=== PATIENT | female | born 2000 | race Caucasian/White ===

== ENCOUNTER 2020-07-14 09:24 | Outpatient (REF) | payer MEDICAID, SELFPAY ==
--- NOTE | 2020-07-14 09:48 | EMG_ITS ---
HISTORY OF PRESENT ILLNESS: This is a 20-year-old girl with 9-month history of pain and numbness in both upper extremities. She is on no medications. PHYSICAL EXAMINATION: On examination, she is alert and oriented with normal intellectual functions. Cranial nerves II through XII are normal. Muscle tone and strength are normal in all 4 extremities. Deep tendon reflexes symmetrical, 2+, plantar response are flexor. IMPRESSION: Rule out carpal tunnel syndrome. NERVE CONDUCTION EMG STUDY: Normal electrodiagnostic study of both upper extremities with no evidence of carpal tunnel syndrome or cervical radiculopathy. Normal EMG of the left C5 through T1 innervated muscles. MD MAURA Recio/ROCIO / [id number]
== END 2020-07-14 09:25 | disposition home or self-care (01) ==
LOC: HO.NEURO 09:24
PROVIDERS: PCP Pediatrics; Visit Provider Pediatrics
DX: M25.531 Pain in right wrist (principal); M25.532 Pain in left wrist; M79.641 Pain in right hand; M79.642 Pain in left hand
CPT/HCPCS: 95860; 95886; 95913

== ENCOUNTER → 2020-07-22 13:11 | Outpatient (BNVA) | payer MEDICAID, SELFPAY | PROVIDERS: PCP Pediatrics; Visit Provider Orthopaedic Surgery | DX: R20.0 Anesthesia of skin (principal); R20.2 Paresthesia of skin | CPT/HCPCS: 99212 ==

== ENCOUNTER 2021-06-29 10:32 | Outpatient (REF) | payer MEDICAID, SELFPAY ==
[2021-06-29 11:02] LABS: COVID-19 Test Negative (Negative)
== END 2021-06-29 10:33 | disposition home or self-care (01) ==
LOC: HO.LAB 10:32
PROVIDERS: Visit Provider Internal Medicine
DX: Z20.822 Contact with and (suspected) exposure to COVID-19 (principal)
CPT/HCPCS: 36415; 87635; C9803

== ENCOUNTER 2021-11-10 14:39 | Outpatient (REF) | payer MEDICAID, SELFPAY ==
--- NOTE | ~2021-11-10 | XR_ITS ---
EXAMINATION: XR SHOULDER, LEFT CLINICAL INFORMATION: Left shoulder pain. COMPARISON: None TECHNIQUE: AP external rotation, Grashey, scapular Y, and axillary views of the left shoulder. FINDINGS: No acute fracture or dislocation of the left shoulder is identified. Glenohumeral joint appears unremarkable. No significant degenerative change of the acromioclavicular joint is seen. No calcific tendinitis. No widening of the coracoclavicular space. AP view there is a 4 mm circumscribed density seen overlying the glenoid and I cannot tell if this may represent a bone island or loose body or not be associated with the joint. I do not definitely see this density on the other images. XR/XR shoulder LT min 2V IMPRESSION: 4 mm circumscribed density overlying the glenoid as described. Otherwise unremarkable left shoulder study.
== END 2021-11-10 14:40 | disposition home or self-care (01) ==
LOC: HO.XRAY 14:39
PROVIDERS: Absent Provider Family Medicine; PCP Family Medicine; Visit Provider Emergency Medicine
DX: M25.512 Pain in left shoulder (principal)
CPT/HCPCS: 73030

== ENCOUNTER 2022-02-08 15:51 | Outpatient (REF) | payer MEDICAID, SELFPAY ==
--- NOTE | ~2022-02-08 | XR_ITS ---
EXAMINATION: XR RIBS, LEFT CLINICAL INFORMATION: Tender along left lateral ribs. Status post fall COMPARISON: None TECHNIQUE: 3 views of the left ribs were obtained. Chest PA 1 view FINDINGS: Lungs are clear. No consolidation, pneumothorax, or pleural effusion. The cardiomediastinal silhouette and pulmonary vasculature are normal. Osseous structures are unremarkable. Ribs are intact. No acute fractures are identified. XR/XR ribs LT min 3V w CXR1V IMPRESSION: Unremarkable chest examination. There is no visible fracture involving the left ribs.
== END 2022-02-08 15:52 | disposition home or self-care (01) ==
LOC: HO.XRAY 15:51
PROVIDERS: PCP Family Medicine; Visit Provider Emergency Medicine
DX: S20.212A Contusion of left front wall of thorax, initial encounter (principal)
CPT/HCPCS: 71101

== ENCOUNTER 2022-07-13 11:32 | Outpatient (REF) | payer OTHER, MEDICAID, SELFPAY ==
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
== END 2022-07-13 11:33 | disposition home or self-care (01) ==
LOC: HO.MRI 11:32
PROVIDERS: PCP Family Medicine; Visit Provider Orthopaedic Surgery
DX: M24.812 Other specific joint derangements of left shoulder, not elsewhere classified (principal)
CPT/HCPCS: 73221

== ENCOUNTER 2024-03-29 12:08 | Emergency (ER) | payer OTHER, SELFPAY ==
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
[2024-03-29 12:23] VITALS: BP 121/86; PULSE 57; RESP 18; TEMP 36.3; O2SAT 100; BMI 36.1
[2024-03-29] MEDS: Amoxicillin/Potassium Clav 875 MG TABLET PO (12:36)
[2024-03-29] MEDS: Diphth,Pertus(ACell),Tet Adult 0.5 ML SYRINGE IM (12:36)
[2024-03-29 12:44] VITALS: BP 121/86; PULSE 57; RESP 18; TEMP 36.3; O2SAT 100
== END 2024-03-29 12:45 | disposition home or self-care (01) ==
PROVIDERS: Emergency Provider Emergency Medicine Emergency Medical Services
DX: S51.851A Open bite of right forearm, initial encounter (principal); Y04.1XXA Assault by human bite, initial encounter; Y93.F9 Activity, other caregiving; Y92.239 Unspecified place in hospital as the place of occurrence of the external cause; Y99.0 Civilian activity done for income or pay; Z23 Encounter for immunization
CPT/HCPCS: 90471; 90715; 99282; 99284

== ENCOUNTER 2025-04-04 17:51 | Emergency (ER) | payer MEDICAID, SELFPAY ==
--- NOTE | ~2025-04-04 | US_ITS ---
CLINICAL HISTORY: pos home test US OB 1st trimester transabdominal and transvaginal with Doppler ultrasound Indication: Positive home test, serum hCG not available at the time of interpretation. LMP reported 02/26 Comparison: None provided Findings: The uterus demonstrates normal myometrium. Endometrial stripe is thickened measuring 12 mm. There is a small possible gestational sac at the upper endometrial stripe measuring a proximally 3 mm. No pole or yolk sac is demonstrated. MSD: 2.6 mm. CRL: N/A EGA: N/A DARWIN: N/A No yolk sac . Cardiac activity: N/A No subchorionic bleed. The right ovary measures 3.5 x 2.5 x 2.4 cm. There is a likely luteal cyst measuring 2.8 x 1.8 x 2.0 cm. The left ovary measures 2.3 x 1.7 x 1.6 cm Normal Doppler flow and waveforms in the bilateral ovaries. No free fluid. IMPRESSION: Intrauterine gestational sac versus pseudo gestational sac given small size. Recommend serum hCG and repeat imaging in 1 to 2 weeks. This document has been electronically signed by: Nj Peralta III, MD PHD on 04/04/2025 21:21:44
[2025-04-04 18:03] VITALS: BP 112/77; PULSE 54; RESP 16; TEMP 36.4; O2SAT 100; BMI 32.8
--- NOTE | 2025-04-04 18:03 | ED.GENADULT ---
HPI - General Adult General Chief complaint: General Medical Stated complaint: ? Time Seen by Provider: 04/04/25 18:45 Source: patient Mode of arrival: ambulatory Limitations: no limitations History of Present Illness ED Provider: Laila Varner PA-C HPI narrative: 25-year-old female presents to the ED due to two positive home tests. Patient states last menstrual period was 02/26-03/04. Patient reports she began to feel some nausea yesterday without vomiting. Patient does not have healthcare, does not have PCP or OB follow-up and wanted ultrasound for evaluation of gestational age. Patient states that she had a prior , had miscarriage. Patient denies vaginal discharge, vaginal bleeding, abdominal pain, vomiting, MD complaint: positive home test Related Data Home Medications ?Medication ?Instructions ?Recorded ?Confirmed citalopram 10 mg tablet (Celexa) 10 mg PO DAILY 07/22/20 clonazepam 0.125 mg disintegrating 0.125 mg PO DAILY 05/26/22 tablet metformin 500 mg tablet 500 mg PO DAILY 05/26/22 Previous Rx's ?Medication ?Instructions ?Recorded amoxicillin 875 mg-potassium 1 tab PO BID #13 tabs 03/29/24 clavulanate 125 mg tablet amoxicillin 500 mg capsule 500 mg PO BID 7 days #14 caps 04/04/25 Allergies Allergy/AdvReac Type Severity Reaction Status Date / Time No Known Allergies Allergy Verified 04/04/25 18:04 Review of Systems Review of Systems: CONST: Negative for fever, body aches and chills. HENT: Negative for neck pain/stiffness, headache, congestion, sore throat, swelling. EYES: Negative for discharge/pain or vision changes. RESP: Negative for cough/hemoptysis and shortness of breath. CV: Negative chest pain, difficulty breathing, palpitations. ABD: Negative pain, nausea, vomiting. : Negative increase frequency, dysuria, blood in urine or stool. MUSC: Negative for muscle aches, edema. SKIN: Negative rash, lesions/sores. NEURO: Negative headache, dizziness, weakness. Yes all other systems are reviewed and are negative PMFSH Past Medical History Attestation statement: The following information was validated with the patient. Source: old records reviewed and nursing notes reviewed Medical History Bilateral hand pain Insomnia Social History Social History Advance Directives: No Advance Directives Information Provided: No Do you have a plan to hurt others: No Plan Current occupational status: unemployed Current occupation: [employer] Physical Exam ED Vital Signs: Vital Signs - 24 hr 04/04/25 18:03 Temperature 97.6 F Pulse Rate 54 Respiratory Rate 16 Blood Pressure 112/77 Pulse Oximetry 100 Oxygen Delivery Method Room Air BMI result Body Mass Index 32.8 GENERAL APPEARANCE: ?AxOx4, generally well-appearing, no acute distress. HEENT: ?NC, AT. MMM. EOMI, clear conjunctiva, oropharynx clear. NECK: ?Supple without lymphadenopathy.? No stiffness or restricted ROM. HEART:? Normal rate and regular rhythm, normal S1/S1, no m/r/g LUNGS:? CTAB, moving air well. No crackles or wheezes are heard. ABDOMEN: ?Soft, nontender, nondistended with good bowel sounds heard. BACK: No CVAT, no obvious deformity. EXTREMITIES: ?Without cyanosis, clubbing or edema. NEUROLOGICAL: ?Grossly nonfocal. Alert and oriented, moving all 4 extremities. Observed to ambulate with normal gait. Skin: ?Warm and dry without any rash. Course Course Course Narrative: RME, this is a rapid medical exam performed by Damián Camp please refer to primary provider for complete H&P- 25 year old female presents for evaluation of I think I am . She reports that she is 8 days late for her menstrual cycle, denies any pain. Plan for labs including HCG Medical Decision Making Medical Decision Making [facility]DM Narrative: 25-year-old female presents to the ED due to two positive home tests. Patient states last menstrual period was 02/26-03/04. Patient reports she began to feel some nausea yesterday without vomiting. Patient does not have healthcare, does not have PCP or OB follow-up and wanted ultrasound for evaluation of gestational age. Patient states that she had a prior , had miscarriage. Patient denies vaginal discharge, vaginal bleeding, abdominal pain, vomiting, VSS, no acute distress, nontoxic appearing. Physical exam benign. Lungs clear to auscultation bilaterally, cardiac exam reveals regular rate rhythm, no murmurs/rubs/gallops. Abdomen soft nontender, nondistended. Extremities without edema. Labs, HCG, UA, ordered from triage Course 19:31- patient states she would like evaluation with transvaginal ultrasound to see if we are able to evaluate her and gestational age. Patient with prior miscarriage, wants to make sure everything is okay. I counseled patient that her hCG at this time is 3:49 p.m., this may be too low for us to visualize embryo on ultrasound. Labs revealed leukocytosis at 11.1, UA reveals cloudy urine, with 1+ leukocyte esterases, 6-10 urine WBCs, 4+ bacteria, and 11-20 squamous epithelial cells. These findings could be due to contaminated catch. Patient without symptoms. No treatment indicated at this time, will call patient if culture is positive for bacteria growth. Patient without vaginal bleeding, no abdominal pain, no CVA tenderness, no physical complaints, vital signs stable without tachycardia, without hypotension, abdomen nontender.- Less likely ectopic Awaiting transvaginal ultrasound. 20:51- at this time I went into discuss transvaginal ultrasound findings with patient and she disclosed with me that she currently has a chlamydia infection is being treated with doxycycline. Patient states she has tested at [facility], with positive chlamydia and negative gonorrhea. She she states she has been on treatment for the past 3 days, was prescribed treatment by [facility]. Patient states she did not take medication today due to finding out she was , and was worried about the medication safety during . I will treat the patient today with IM Rocephin, and 7 days of 500 mg amoxicillin b.i.d. Transvaginal ultrasound reveals gestational sac within the uterus, can not visualize yolk at this time due to early gestational age. Differential Diagnosis Differential Diagnoses: The differential diagnosis associated with the presentation includes Ectopic UTI Admission/Observation Consideration of admission/observation: Escalation of care including admission/observation considered Lab Data MDM Lab Attestation statement: I reviewed the patient's lab results. 04/04/25 18:30 04/04/25 18:29 Labs: Lab Results 04/04/25 04/04/25 Range/Units 18:29 18:30 WBC 11.1 H (4.8-10.8) X10*3/uL RBC 4.88 (4.20-5.50) X10*6/uL Hgb 10.9 L (12.0-16.0) g/dl Hct 35.7 L (37.0-47.0) % MCV 73.2 L (80.0-98.0) fL MCH 22.3 L (27.0-33.0) pg MCHC 30.5 L (31.0-35.0) g/dl RDW 16.7 H (11.0-16.0) % Plt Count 220 (160-400) X10*3/uL MPV 11.5 (9.4-12.3) fL Immature Gran % (Auto) 0.2 (0.0-0.4) % Neut % (Auto) 78.6 H (45-73) % Lymph % (Auto) 14.2 L (20-40) % [place] % (Auto) 5.8 (2-11) % Eos % (Auto) 0.6 (0-4) % Baso % (Auto) 0.6 (0-2) % Lymph # (Auto) 1.6 (1.2-4.9) X10*3/uL [place] # (Auto) 0.7 (0.1-1.2) X10*3/uL Eos # (Auto) 0.1 (0.0-0.4) X10*3/uL Baso # (Auto) 0.1 (0.0-0.2) X10*3/uL Abs Immat Gran (auto) 0.02 (0.00-0.03) X10*3/uL Absolute Neuts (auto) 8.7 H (2.0-8.3) x10*3/uL Absolute Nucleated RBC 0.000 (0.0-0.012) X10*3/uL Nucleated RBC % (auto) 0.0 (0.0-0.2) /100WBC Smear Tech's Comments VERIFIED Sodium 141 (135-145) mmol/L Potassium 3.6 (3.3-5.1) mmol/L Chloride 106 (96-108) mmol/L Carbon Dioxide 25 (22-29) mmol/L Anion Gap 14 (12-20) BUN 9 (9-16) mg/dL Creatinine 0.75 (0.5-1.4) mg/dL Estim Creat Clear Calc 116.6 Estimated GFR > 60 Random Glucose 89 (60-115) mg/dL Calcium 9.5 (8.4-10.2) mg/dL Total Bilirubin 0.9 (0.0-1.0) mg/dL AST 19 (5-31) U/L ALT 14 (0-31) U/L Alkaline Phosphatase 89 (39-117) U/L Total Protein 7.8 (6.5-8.0) g/dL Albumin 4.7 (3.5-5.0) g/dL Beta HCG, Quant 1549 mIU/mL Urine Color Yellow Urine Appearance Cloudy Urine pH 6.5 (5.0-9.0) Ur Specific [place] 1.025 (1.005-1.025) Urine Protein Trace (Neg-Trace) mg/dL Urine Glucose (UA) Negative (Negative) mg/dL Urine Ketones Negative (Negative) mg/dL Urine Blood Negative (Negative) Urine Nitrite Negative (Negative) Ur Leukocyte Esterase Small (1+) H (Negative) Urine RBC 0-2 (0-2) /HPF Urine WBC 6-10 H (0-5) /HPF Ur Squamous Epith Cells 11-20 (0-2) /HPF Urine Bacteria 4+ (None Seen) Hyaline Casts 0-2 (0-2) /LPF Independent Interpretation I performed an independent interpretation of an: Ultrasound Interpretation: I independently interpreted the transvaginal ultrasound which visualized as a gestational sac within the uterus, but no yolk is visualized due to early gestational age. External Record Review External record reviewed: Inpatient record, Office record and Outpatient record Chronic Conditions Patient?s care impacted by: Other () Discharge Plan Discharge Clinical Impression: , Chlamydia Patient Disposition: Home, Self-Care Instructions: (ED) Additional Instructions: You were evaluated in the ED today due to positive home test. Your transvaginal ultrasound revealed gestational sac within the uterus, but no visualized yolk due to early gestational age. Your urine test was contaminated by a skin cells, but will be cultured, if bacteria grows he will call you with results-I do not think your urine is infected at this time, you do not have any symptoms. You disclosed with me that you were currently being treated for chlamydia through [facility] and had been on doxycycline. You should discontinue the doxycycline. I treated you today for an COVID infection of both chlamydia and gonorrhea these 2 STIs usually go hand in hand. You received an IM shot of 500 mg ceftriaxone which is an antibiotic safe in , and prescribed a 7 day course of 500 mg of amoxicillin that you will take twice a day, this medication is also safe in . You should complete this medication its entirety, do not skip a dose. Your sexual partner should also be treated. Do not have sexual intercourse until you complete your antibiotic regimen. Do not use any sex toys that have not been washed as you can reinfect yourself. You can present to the main entrance of [facility] Sunday through Sunday during business hours for assistance in obtaining mass Health. Please return to the emergency department if you experience fevers over 100.4?, abdominal pain, pelvic pain, vaginal bleeding, vaginal discharge, or any other new/worsening/concerning symptoms. Prescriptions: New amoxicillin 500 mg capsule 500 mg PO BID 7 Days Qty: 14 0RF No Action amoxicillin-pot clavulanate 875-125 mg tablet 1 tab PO BID Qty: 13 0RF citalopram [Celexa] 10 mg tablet 10 mg PO DAILY clonazepam 0.125 mg tablet,disintegrating 0.125 mg PO DAILY metformin 500 mg tablet 500 mg PO DAILY Print Language: Mongolian
[2025-04-04 18:39] LABS: Appearance Urine Cloudy; Glucose Urine UA Negative (Negative); PH 6.5 (5.0-9.0); Specific Gravity - Urine 1.025 (1.005-1.025); UMIC TRIGGER UACC YES
[2025-04-04 18:39] LABS: Hematocrit 35.7 % (37.0-47.0); Mean Corpuscular Volume 73.2 fL (80.0-98.0); NRBC Abs Auto 0.000 X10*3/uL (0.0-0.012); NRBC Pct Auto 0.0 /100WBC (0.0-0.2); Red Blood Count 4.88 X10*6/uL (4.20-5.50); SCAN SMEAR FLAG 1
[2025-04-04 18:40] LABS: Hemoglobin 10.9 g/dl (12.0-16.0); Imm Gran Abs Auto 0.02 X10*3/uL (0.00-0.03); Imm Gran Pct Auto 0.2 % (0.0-0.4); Lymphocytes Absolute Auto 1.6 X10*3/uL (1.2-4.9); MANUAL DIFF FLAG SCAN; Mean Corpuscular HGB Conc 30.5 g/dl (31.0-35.0); Mean Corpuscular Hemoglobin 22.3 pg (27.0-33.0); White Blood Count 11.1 X10*3/uL (4.8-10.8)
[2025-04-04 18:41] LABS: PLT ABN DIST 1
[2025-04-04 18:44] LABS: UACC Culture Trigger YES
[2025-04-04 18:58] LABS: Alanine Aminotransferase 14 U/L (0-31); Albumin Level 4.7 g/dL (3.5-5.0); Alkaline Phosphatase 89 U/L (39-117); Anion Gap 14 (12-20); Aspartate Amino Transferase 19 U/L (5-31); Blood Urea Nitrogen 9 mg/dL (9-16); Calcium 9.5 mg/dL (8.4-10.2); Carbon Dioxide 25 mmol/L (22-29); Chloride 106 mmol/L (96-108); Creatinine Clr Calc Pharmacy 116.6; Estimated Glomerular Filt Rate > 60; Potassium 3.6 mmol/L (3.3-5.1); Sodium 141 mmol/L (135-145); Total Protein 7.8 g/dL (6.5-8.0)
[2025-04-04 18:59] LABS: Platelet Count 220 X10*3/uL (160-400)
[2025-04-04 21:05] VITALS: BP 118/78; PULSE 60; RESP 18; TEMP 36.6; O2SAT 100
[2025-04-04] MEDS: cefTRIAXone sodium 500 MG, Lidocaine HCl 1 % MPF 1 ML IM (21:09)
[2025-04-04 21:18] VITALS: BP 118/78; PULSE 60; RESP 18; TEMP 36.6; O2SAT 100
== END 2025-04-04 21:19 | disposition home or self-care (01) ==
PROVIDERS: Physician Assistant; Emergency Provider Emergency Medicine
DX: O98.311 Other infections with a predominantly sexual mode of transmission complicating pregnancy, first trimester (principal); A56.02 Chlamydial vulvovaginitis; Z3A.01 Less than 8 weeks gestation of pregnancy
CPT/HCPCS: 36415; 76801; 80053; 81001; 84702; 85025; 87086; 96372; 99284; J0696; J2003

== ENCOUNTER → 2025-04-04 19:24 | Outpatient (BNV) | payer MEDICAID, SELFPAY | PROVIDERS: Emergency Provider Emergency Medicine; Visit Provider Radiology Diagnostic Radiology | DX: Z34.90 Encounter for supervision of normal pregnancy, unspecified, unspecified trimester (principal); Z3A.00 Weeks of gestation of pregnancy not specified | CPT/HCPCS: 76801; 76817 ==

== ENCOUNTER 2025-04-23 08:56 | Emergency (ER) | payer MEDICAID, SELFPAY ==
--- NOTE | ~2025-04-23 | US_ITS ---
EXAMINATION: US OBSTETRICAL ULTRASOUND CLINICAL INFORMATION: Early , vaginal bleeding. COMPARISON: None available. LMP: Estimated 02/26/2025. TECHNIQUE: Ultrasound of the maternal pelvis is performed using transabdominal and transvaginal transducers. Transvaginal imaging is performed due to inadequate visualization transabdominally. M-mode Doppler is also performed. FINDINGS: There is an intrauterine gestational sac within the fundal endometrium, with good dual decidual reaction present, a 5 mm yolk sac, a pole present measuring 0.3 cm, corresponding to estimated gestational age of 6 weeks, and 0 days. Estimated heart rate is measured at 109 bpm. No subchorionic hemorrhage or complication evident. The cervix has a normal appearance. MATERNAL ADNEXA: The right maternal ovary measures 3.9 x 1.9 x 2.4 cm. There is a corpus luteal cyst measuring 2.0 x 1.8 cm present. The left maternal ovary measures 2.2 x 1.7 x 1.4 cm. Normal sonographic appearance. There is no significant maternal adnexal mass. No maternal pelvic ascites. US/US OB <= 14 weeks fetus IMPRESSION: 1. Intrauterine gestational sac with good dual decidual reaction, no evidence of subchorionic hemorrhage, 5 mm yolk sac, and pole measuring 0.3 cm, corresponding to estimated gestational age of 6 weeks and 0 days. Estimated heart rate of 109 bpm. 2. No maternal adnexal mass or pelvic ascites. 3. Normal ovaries with corpus luteal cyst in the right ovary. Electronically signed by: Cong Dickinson MD 04/23/2025 11:50 AM EDT
--- NOTE | ~2025-04-23 | US_ITS ---
EXAMINATION: US OBSTETRICAL ULTRASOUND CLINICAL INFORMATION: Early , vaginal bleeding. COMPARISON: None available. LMP: Estimated 02/26/2025. TECHNIQUE: Ultrasound of the maternal pelvis is performed using transabdominal and transvaginal transducers. Transvaginal imaging is performed due to inadequate visualization transabdominally. M-mode Doppler is also performed. FINDINGS: There is an intrauterine gestational sac within the fundal endometrium, with good dual decidual reaction present, a 5 mm yolk sac, a pole present measuring 0.3 cm, corresponding to estimated gestational age of 6 weeks, and 0 days. Estimated heart rate is measured at 109 bpm. No subchorionic hemorrhage or complication evident. The cervix has a normal appearance. MATERNAL ADNEXA: The right maternal ovary measures 3.9 x 1.9 x 2.4 cm. There is a corpus luteal cyst measuring 2.0 x 1.8 cm present. The left maternal ovary measures 2.2 x 1.7 x 1.4 cm. Normal sonographic appearance. There is no significant maternal adnexal mass. No maternal pelvic ascites. US/US OB transvaginal IMPRESSION: 1. Intrauterine gestational sac with good dual decidual reaction, no evidence of subchorionic hemorrhage, 5 mm yolk sac, and pole measuring 0.3 cm, corresponding to estimated gestational age of 6 weeks and 0 days. Estimated heart rate of 109 bpm. 2. No maternal adnexal mass or pelvic ascites. 3. Normal ovaries with corpus luteal cyst in the right ovary. Electronically signed by: Cong Dickinson MD 04/23/2025 11:50 AM EDT
[2025-04-23 09:05] VITALS: BP 129/67; PULSE 59; RESP 16; TEMP 37.2; O2SAT 100; BMI 33.8
[2025-04-23 09:33] LABS: MANUAL DIFF FLAG NO
[2025-04-23 09:38] LABS: Hematocrit 31.9 % (37.0-47.0); Hemoglobin 9.8 g/dl (12.0-16.0); Imm Gran Abs Auto 0.02 X10*3/uL (0.00-0.03); Imm Gran Pct Auto 0.3 % (0.0-0.4); Lymphocytes Absolute Auto 1.2 X10*3/uL (1.2-4.9); Mean Corpuscular HGB Conc 30.7 g/dl (31.0-35.0); Mean Corpuscular Hemoglobin 23.3 pg (27.0-33.0); Mean Corpuscular Volume 75.8 fL (80.0-98.0); NRBC Abs Auto 0.000 X10*3/uL (0.0-0.012); NRBC Pct Auto 0.0 /100WBC (0.0-0.2); Platelet Count 182 X10*3/uL (160-400); Red Blood Count 4.21 X10*6/uL (4.20-5.50); White Blood Count 6.8 X10*3/uL (4.8-10.8)
[2025-04-23 10:00] LABS: Anion Gap 12 (12-20); Blood Urea Nitrogen 8 mg/dL (9-16); Calcium 8.9 mg/dL (8.4-10.2); Carbon Dioxide 26 mmol/L (22-29); Chloride 106 mmol/L (96-108); Creatinine Clr Calc Pharmacy 119.3; Estimated Glomerular Filt Rate > 60; Potassium 4.0 mmol/L (3.3-5.1); Sodium 140 mmol/L (135-145)
--- NOTE | 2025-04-23 11:05 | ED.GENADULT ---
HPI - General Adult General Chief complaint: Vaginal Bleeding Stated complaint: vaginal bleeding Related Data Home Medications ?Medication ?Instructions ?Recorded ?Confirmed citalopram 10 mg tablet (Celexa) 10 mg PO DAILY 07/22/20 clonazepam 0.125 mg disintegrating 0.125 mg PO DAILY 05/26/22 tablet metformin 500 mg tablet 500 mg PO DAILY 05/26/22 Previous Rx's ?Medication ?Instructions ?Recorded amoxicillin 875 mg-potassium 1 tab PO BID #13 tabs 03/29/24 clavulanate 125 mg tablet amoxicillin 500 mg capsule 500 mg PO BID 7 days #14 caps 04/04/25 Allergies Allergy/AdvReac Type Severity Reaction Status Date / Time No Known Allergies Allergy Verified 04/23/25 09:07 [facility] Past Medical History Medical History Bilateral hand pain Insomnia Social History Social History Advance Directives: No Advance Directives Information Provided: No Current occupational status: unemployed Current occupation: [employer] Physical Exam ED Vital Signs: Vital Signs - 24 hr 04/23/25 09:05 Temperature 99 F Pulse Rate 59 Respiratory Rate 16 Blood Pressure 129/67 Pulse Oximetry 100 Oxygen Delivery Method Room Air BMI result Body Mass Index 33.8 Medical Decision Making Lab Data 04/23/25 09:22 04/23/25 09:22 Labs: Lab Results 04/23/25 04/23/25 Range/Units 09:22 11:18 WBC 6.8 (4.8-10.8) X10*3/uL RBC 4.21 (4.20-5.50) X10*6/uL Hgb 9.8 L (12.0-16.0) g/dl Hct 31.9 L (37.0-47.0) % MCV 75.8 L (80.0-98.0) fL MCH 23.3 L (27.0-33.0) pg MCHC 30.7 L (31.0-35.0) g/dl RDW 17.8 H (11.0-16.0) % Plt Count 182 (160-400) X10*3/uL MPV 11.6 (9.4-12.3) fL Immature Gran % (Auto) 0.3 (0.0-0.4) % Neut % (Auto) 68.3 (45-73) % Lymph % (Auto) 17.5 L (20-40) % [place] % (Auto) 9.5 (2-11) % Eos % (Auto) 4.0 (0-4) % Baso % (Auto) 0.4 (0-2) % Lymph # (Auto) 1.2 (1.2-4.9) X10*3/uL [place] # (Auto) 0.7 (0.1-1.2) X10*3/uL Eos # (Auto) 0.3 (0.0-0.4) X10*3/uL Baso # (Auto) 0.0 (0.0-0.2) X10*3/uL Abs Immat Gran (auto) 0.02 (0.00-0.03) X10*3/uL Absolute Neuts (auto) 4.7 (2.0-8.3) x10*3/uL Absolute Nucleated RBC 0.000 (0.0-0.012) X10*3/uL Nucleated RBC % (auto) 0.0 (0.0-0.2) /100WBC Sodium 140 (135-145) mmol/L Potassium 4.0 (3.3-5.1) mmol/L Chloride 106 (96-108) mmol/L Carbon Dioxide 26 (22-29) mmol/L Anion Gap 12 (12-20) BUN 8 L (9-16) mg/dL Creatinine 0.69 (0.5-1.4) mg/dL Estim Creat Clear Calc 119.3 Estimated GFR > 60 Random Glucose 97 (60-115) mg/dL Calcium 8.9 D (8.4-10.2) mg/dL Beta HCG, Quant 08765 mIU/mL Blood Type O Positive Discharge Plan Discharge Clinical Impression: Diagnosis unknown Patient Disposition: Left Without Being Seen Interventions: LWBS Worksheet Last Done: 04/23/25 16:11 Discharge Date/Time: 04/23/25 15:59
--- OUTSIDE RECORDS SUMMARY | 2025-04-23 16:02 | XMS_ITS | Encounter Summary ---
Author Organization [facility] Address [address] [facility] [address] [place] [phone] Phone Care Team Providers Care Steam Plant Control Room Operator Name Role Phone JersonNydia ng Primary Care Provider Encounter Details Date Type Department Care Team (Late st Contact Info) Description 01/24/2022 Ancillary Orders [facility] [address] [place] [address] Elizabeth Alberto, ROWAN [address] [facility], [address] [address] [email or web address] Missed Social History Tobacco Use Types Packs/Day Years Used Date Smoking Tobacco: Never Smokeless Tobacco: Never Alcohol Use Standard Drinks/Week Comments Not Currently 0 (1 standard drink = 0.6 oz pur e alcohol) socially Comments No Sex and Gender Information Value Date Recorded Sex Assigned at Not on file Legal Sex Female 12:46 PM EDT Gender Identity Not on file Sexual Orientation Not on file documented as of this encounter Plan of Treatment Upcoming Encounters Date Type Department Care Team (Late st Contact Info) Description 04/24/2025 10:00 AM EDT Telephone [facility] [address] [place] [address] Nadja Curry, CN [address] [facility], [address] [phone] documented as of this encounter Results * US OB LESS THAN 14 WEEKS TRANSVAGINAL (01/24/2022 5:33 PM EDT) Anatomical Region Laterality Modality Abdomen, Pelvis, Uterus/Adnexa U ltrasound 01/24/2022 5:47 PM EDT Impressions 01/24/2022 6:32 PM EDT There remains a non-viable IUP after misoprostol. Narrative 01/24/2022 6:32 PM EDT INDICATION: F/U misses AB, s/p misoprostol Exam Date: 01/24/2022 Last Menstrual Period: 11/01/2021 Ultrasound Age: 9w1d DESCRIPTION: Yolk Sac: Not seen Gestational Sac: Seen Cardiac Activity: Not seen Embryo: Seen Number: 1 Gestational Sac Location: Fundal Cul de Sac Fluid: None FIRST TRIMESTER SCAN: Gestational sac with fetus still seen in the uterus. No cardiac activity is seen. CRL = 2.17 cm ( 8w6d ) Mean sac diameter = 3.69 cm ( 9w2d ) Bilateral ovaries contains multiple tiny peripheral follicles. No adnexal masses seen. Transvaginal ultrasound was performed. Procedure Note Nj Crowley MD - 01/24/2022 INDICATION: F/U misses AB, s/p misoprostol Exam Date: 01/24/2022 Last Menstrual Period: 11/01/2021 Ultrasound Age: 9w1d DESCRIPTION: Yolk Sac: Not seen Gestational Sac: Seen Cardiac Activity: Not seen Embryo: Seen Number: 1 Gestational Sac Location: Fundal Cul de Sac Fluid: None FIRST TRIMESTER SCAN: Gestational sac with fetus still seen in the uterus. No cardiac activityis seen. CRL = 2.17 cm ( 8w6d ) Mean sac diameter = 3.69 cm ( 9w2d ) Bilateral ovaries contains multiple tiny peripheral follicles. No adnexalmasses seen. Transvaginal ultrasound was performed. IMPRESSION: There remains a non-viable IUP after misoprostol. us Elizabeth FORDM IMG US OBSTETRIC Final R esult documented in this encounter Visit Diagnoses Diagnosis Missed Missed documented in this encounter Care Teams Steam Plant Control Room Operator Relationship Specialty Start Date End Date JurcsNydia albarran DO [address] [place] [id number] PCP - General Family Medicine 12/14/21 documented as of this encounter Additional Source Comments The information contained in this document represents components of the legal health record. It is not the complete legal health record.[facility]
--- OUTSIDE RECORDS SUMMARY | 2025-04-23 16:02 | XMS_ITS | Encounter Summary ---
Author Organization [employer] Address [address] [facility] 7t [place] [address] Care Team Providers Care Cement Car Dumper Name Role Phone Nydia Oro DO Primary Care Provider Reason for Visit * Reason Onset Date Comments Med Refill 01/29/2024 Encounter Details Date Type Department Care Team (Late st Contact Info) Description 01/29/2024 Refill [facility] [address] [place] [address] Nydia Oro DO [address] [place], [place] [phone] Social History Tobacco Use Types Packs/Day Years Used Date Smoking Tobacco: Former Cigarettes Smokeless Tobacco: Never Depression Answer Date Recorded Patient Health Questionnaire-9 Score 8 10/08/2023 Patient Health Questionnaire-9 Score 8 10/08/2023 Last PHQ-9: Questionnaire Data Not on file 0 10/08/2023 Housing Stability Answer Date Recorded What is your housing situation today? I have rosa maria velasquez 10/08/[address] you li ve. Do you have problems with any of the following? None of the above 10/08/2023 Food Insecurity Answer Date Recorded Within the past 12 months, y ou worried that your food would run out before you got money to buy more: Never True 10/08/2023 Within the past 12 months,th e food you bought just didn't last and you didn't have enough money to get more: Never True Transportation Answer Date Recorded In the past 12 months, has l ack of transportation kept you from medical appts, meetings, work or from getting things needed for daily living? No 10/08/2023 Utilities Answer Date Recorded In the past 12 months, has t he electric, gas, oil or water company threatened to shut off services in your home? No 10/08/2023 Depression Answer Date Recorded Patient Health Questionnaire-2 Score 1 10/08/2023 Comments Unknown Sex and Gender Information Value Date Recorded Sex Assigned at Female 07/17/2022 10:19 AM EDT Legal Sex Female 10:19 AM EDT Gender Identity Female 07/22/2023 9:00 PM EST Sexual Orientation Bisexual 07/22/2023 9: 00 PM EST Sexual Orientation Straight 07/22/2023 9: 00 PM EST documented as of this encounter Plan of Treatment Not on file documented as of this encounter Visit Diagnoses Not on filedocumented in this encounter Additional Health Concerns Assessment Noted Time PHQ-9 Depression Total Score: 8 10/08/19 24 9:27 AM EST documented as of this encounter Care Teams Cement Car Dumper Relationship Specialty Start Date End Date Nydia Oro DO [address] [place] [phone] PCP - General Family Medicine 11/24/20 documented as of this encounter
== END 2025-04-23 15:59 | disposition left against medical advice (07) ==
PROVIDERS: Emergency Provider Emergency Medicine
DX: N93.9 Abnormal uterine and vaginal bleeding, unspecified (principal); Z53.21 Procedure and treatment not carried out due to patient leaving prior to being seen by health care provider
CPT/HCPCS: 36415; 76801; 76817; 80048; 84702; 85025; 86900; 86901; 99281; 99284

== ENCOUNTER → 2025-04-23 11:06 | Outpatient (BNV) | payer MEDICAID, SELFPAY | PROVIDERS: Visit Provider Radiology Diagnostic Radiology | DX: O26.851 Spotting complicating pregnancy, first trimester (principal) | CPT/HCPCS: 76817 ==

== ENCOUNTER 2025-05-04 11:52 | Outpatient (REF) | payer MEDICAID, SELFPAY ==
--- NOTE | ~2025-05-04 | XR_ITS ---
EXAMINATION: XR SHOULDER 2 OR MORE VIEWS LEFT HISTORY: M25.512 - Pain in left shoulder COMPARISON: Comparison is made with the prior examination dated 11/10/2021. FINDINGS: Three views of the left shoulder are submitted. Osseous mineralization is normal. There is no fracture or dislocation. The glenohumeral and acromioclavicular joint spaces are preserved. The soft tissues are unremarkable. XR/XR shoulder LT min 2V IMPRESSION: Unremarkable examination of the left shoulder. Electronically signed by: Jose Guadalupe Olivera MD 05/04/2025 03:41 PM EDT
--- OUTSIDE RECORDS SUMMARY | 2025-05-04 13:10 | XMS_ITS | Encounter Summary ---
Author Organization [facility] Address [address] [facility] [address] [place] [address] Phone Care Team Providers Care Director Biologics Name Role Phone JersonNydia ng Primary Care Provider Encounter Details Date Type Department Care Team (Late st Contact Info) Description 01/24/2022 Ancillary Orders [facility] [address] [place] [phone] Elizabeth Alberto, [facility] [address] [facility], [address] [place] [address] [email or web address] Missed Social History Tobacco Use Types Packs/Day [...] as of this encounter Plan of Treatment Scheduled Procedures Name Priority Associated Diagnoses Date/Ti me DILATION AND EVACUATION SAB (spontaneous ) documented as of this encounter Results * [...] There remains a non-viable IUP after misoprostol. Elizabeth Alberto CN IMG US OBSTETRIC Final R esult documented in this encounter Visit Diagnoses Diagnosis Missed Missed documented in this encounter Care Teams Director Biologics Relationship Specialty Start Date End Date yNdia Oro DO [address] [place] [phone] PCP - General Family Medicine 12/14/21 documented as of this encounter Additional Source Comments The information contained in this document represents components of the legal health record. It is not the complete legal health record.[facility]
--- OUTSIDE RECORDS SUMMARY | 2025-05-04 13:10 | XMS_ITS | Encounter Summary ---
Author Organization [employer] Address [address] [facility] 7t [place] [address] Care Team Providers Care Yard Coupler Name Role Phone Nydia Oro DO Primary Care Provider [phone] Reason for Visit * Reason Onset Date Comments Med Refill 01/29/2024 Encounter Details Date Type Department Care Team (Late st Contact Info) Description 01/29/2024 Refill [facility] [address] [place] [address] Nydia Oro DO [address] [place], [place] [phone] Social History Tobacco Use Types Packs/Day Years [...] documented as of this encounter Care Teams Yard Coupler Relationship Specialty Start Date End Date Nydia Oro DO [address] [place] [phone] PCP - General Family Medicine 11/24/20 documented as of this encounter
== END 2025-05-04 11:53 | disposition home or self-care (01) ==
LOC: HO.HOSX 11:52
PROVIDERS: Visit Provider Physician Assistant
DX: M77.8 Other enthesopathies, not elsewhere classified (principal); M25.512 Pain in left shoulder; Z79.1 Long term (current) use of non-steroidal anti-inflammatories (NSAID)
CPT/HCPCS: 73030; 99202

== ENCOUNTER 2025-05-04 15:27 | Outpatient (AMB) | payer OTHER, SELFPAY ==
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
[2025-05-04 15:44] VITALS: BMI 34.4
== END 2025-05-04 16:10 | disposition home or self-care (01) ==
LOC: HO.HOS 15:28
PROVIDERS: Visit Provider Physician Assistant
DX: M77.8 Other enthesopathies, not elsewhere classified (principal)
CPT/HCPCS: 99203; G2211

== ENCOUNTER → 2025-05-04 15:31 | Outpatient (BNV) | payer MEDICAID, SELFPAY | PROVIDERS: Visit Provider Radiology Diagnostic Radiology | DX: M25.512 Pain in left shoulder (principal) | CPT/HCPCS: 73030 ==

== ENCOUNTER 2025-06-12 18:36 | Emergency (ER) | payer MEDICAID, SELFPAY ==
[2025-06-12 19:00] VITALS: BP 121/68; PULSE 65; RESP 20; TEMP 36.7; O2SAT 99; BMI 33.8
--- NOTE | 2025-06-12 19:00 | ED_ITS ---
HPI - General Adult General Chief complaint: Upper Respiratory Symptoms Stated complaint: sob/tonsils are bothering her Time Seen by Provider: 06/12/25 20:57 Source: patient Mode of arrival: ambulatory Limitations: no limitations History of Present Illness ED Provider: Dr. Kimberly Zuniga HPI narrative: Patient comes to the emergency room complaining of sore throat. Patient states that she has history of tonsil stones, but 1 of them looks black. Patient believes it is some kind of blood collection. Patient reports sore throat coughing up green phlegm. Denies fever chills Related Data Home Medications ?Medication ?Instructions ?Recorded ?Confirmed citalopram 10 mg tablet (Celexa) 10 mg PO DAILY 05/12/25 clonazepam 0.125 mg disintegrating 0.125 mg PO DAILY 0 05/26/22 05/12/25 tablet Previous Rx's ?Medication ?Instructions ?Recorded ibuprofen 800 mg tablet 800 mg PO Q8H PRN pain 30 da ys #90 05/04/25 tabs Allergies Allergy/AdvReac Type Severity Reaction Status Date / Time No Known Allergies Allergy Verified 06/12/25 19:01 Review of Systems Review of Systems: Constitutional : No Weight loss, No Fever, No Chills, No Night Sweats, No Fatigue, No Malaise ENT/Mouth : Complaining of sore throat and a possible stone versus blood formation and the left tonsil. No Hearing loss, No Ear Pain, No Nasal Congestion, No Sinus Pain, No Hoarseness, No sore throat, No Rhinorrhea, No Swallowing Difficulty Eyes: No Eye Pain, No Swelling, No Redness, No Foreign Body, No Discharge, No Vision Changes Cardiovascular : No Chest Pain, No SOB, No Dyspnea on Exertion, No Orthopnea, No Edema, No Palpitations Respiratory : No Cough, No Sputum, No Wheezing, No Smoke Exposure, No Dyspnea Gastrointestinal : No Nausea, No Vomiting, No Diarrhea, No Constipation, No abdominal Pain, No Hematochezia, No Melena Genitourinary : no irregular bleeding, No Dysuria, No Urinary Frequency, No Hematuria, No Urinary Incontinence, No Urgency, No Flank Pain, No Urinary Flow Changes, No Hesitancy Musculoskeletal : No joint pain, No Myalgias, No Joint Swelling Skin : No Skin Lesions, No rash Neuro : No Weakness, No Numbness, No Paresthesias, No Loss of Consciousness, No Dizziness, No Headache Psych : No Anxiety/Panic, No Depression, No SI/HI/AH/VH, No Social Issues, Heme/Lymph: No Bruising, No Bleeding,No Lymphadenopathy Endocrine : No Polyuria, No Polydipsia, No Temperature Intolerance PMFSH Past Medical History Medical History Bilateral hand pain Insomnia Social History Social History Advance Directives: No Advance Directives Information Provided: No Current occupational status: unemployed Current occupation: [employer] Physical Exam ED Exam Exam: Appearance: Alert. Oriented X3. No acute distress. Eyes: Pupils equal, round and reactive to light. ENT: Pharynx normal. On the left tonsil, there is a black/bluish discoloration, seems to be a blood clot versus a venous malformation? , does not seem to be a tonsil stone Neck: Normal inspection. Neck supple. No lymph nodes noted. No crepitus CVS: Normal heart rate and rhythm. Pulses normal. Normal S1 and S2 Respiratory: No respiratory distress. Breath sounds normal. No Wheezing. No rales Abdomen: Soft and nontender. No rigidity. No distention. Skin: Skin warm and dry. Normal skin color. Normal skin turgor. Extremities: No lower extremity edema. No Lacerations. No Rash Neuro: Oriented X 3. No motor deficit. No sensory deficit. Moving all extremities. No slurred speech. CN 2 through 12 grossly intact Psych: calm, cooperative, normal affect Vital Signs: Vital Signs - 24 hr 06/12/25 19:00 Temperature 98.1 F Pulse Rate 65 Respiratory Rate 20 Blood Pressure 121/68 Pulse Oximetry 99 Oxygen Delivery Method Room Air BMI result Body Mass Index 33.8 Course Course Course Narrative: RME, this is a rapid medical exam performed by Damián Camp please refer to primary provider for complete H&P- 25 year old female presents for evaluation of left sided sore throat and exudates. She also endorses cough and shortness of breath. Plan for viral swabs and strep testing. Medical Decision Making Medical Decision Making [facility] Narrative: My interpretation of labs: Patient tested negative for COVID influenza and strep I was informed by the patient's nurse that the patient had just been brought back to the main ED, has been waiting for less than 5 minutes and requesting to leave. When I saw the patient, I was able to go quick physical exam, noted above. Patient states that she does not want to wait any longer or have any further workup, states that she needs to leave Patient aware that if etiology of the lesion in her tonsil remains unclear, it could be a blood vessel? Which if it ruptures could lead to severe bleeding. Patient states that she does not care and wants to be discharged. Patient was made aware of the risks of leaving AMA. Patient agrees. Differential Diagnosis Differential Diagnoses: The differential diagnosis associated with the presenta tion includes (As above) Lab Data MDM Lab Attestation statement: I reviewed the patient's lab results. Labs: Lab Results 06/12/25 Range/Units 19:07 COVID-19 (SAV) Negative (Negative) COVID-19 Clin Com See Note Influenza Type A (MANJIT) Negative (Negative) Influenza Type B (MANJIT) Negative (Negative) Influenza A & B Note See Note S. pyogenes GrpA MANIJT Negative (Negative) Discharge Plan Discharge Clinical Impression: Acute sore throat Patient Disposition: Left Against Medical Advice Instructions: Pharyngitis (ED) Additional Instructions: You have a vascular formation and 1 of your tonsils, could be an abscess, could be a blood clot, , vascular malformation which could lead to severe bleeding. Unclear what the etiology of the lesion. You declined to stay for any further workup and requested to be discharged. You tested negative for COVID influenza and strep. Prescriptions: No Action citalopram [Celexa] 10 mg tablet 10 mg PO DAILY clonazepam 0.125 mg tablet,disintegrating 0.125 mg PO DAILY ibuprofen 800 mg tablet 800 mg PO Q8H PRN (Reason: pain) 30 Days Qty: 90 3RF Print Language: [place]
[2025-06-12 19:32] LABS: IDNOW Serial# 08D9AD1C; Strep A Nucleic Acid Negative (Negative)
[2025-06-12 19:39] LABS: COVID-19 Test Negative (Negative); IDNOW Serial# 55D5AD1C; IDNOW Serial# 58CA691E
[2025-06-12 19:40] LABS: Influenza B2 Negative (Negative)
[2025-06-12 21:05] VITALS: BP 121/68; PULSE 65; RESP 20; TEMP 36.7; O2SAT 99
--- NOTE | 2025-06-12 21:06 | PC.NURSE ---
Patient evaluated by the provider but refused to remain for treatment. Left AMA.
== END 2025-06-12 21:06 | disposition left against medical advice (07) ==
PROVIDERS: Physician Assistant; Emergency Provider Emergency Medicine; PCP Family Medicine
DX: J02.9 Acute pharyngitis, unspecified (principal); R06.02 Shortness of breath; R05.9 Cough, unspecified; Z79.899 Other long term (current) drug therapy; Z11.52 Encounter for screening for COVID-19
CPT/HCPCS: 87502; 87635; 87651; 99282; 99283

== ENCOUNTER 2025-07-03 11:44 | Outpatient (AMB) | payer OTHER, SELFPAY ==
--- NOTE | 2025-07-03 11:51 | A.OFFVIS_ITS ---
Vital Signs 07/03/25 11:57 Height 5 ft 1 in Weight 179 lb BMI 33.8 Intake Visit Reasons: OV- LT shoulder tendonitis, WC DOI 03/04/25 Intake Note: Candy is a 25 year old right hand dominant female who presents today for a workers comp follow up of left shoulder tendonitis, DOI 03/04/25. At her last visit she was encouraged to work with physical therapy. She was instructed to remain out of work and follow up in 6-8 weeks. Today patient reports that she has been attending therapy however she does no feel there is any progression. She has no change in symptoms since her last visit, she continues to have pain and limited ROM. States physical therapy suggested to talk to provider regarding an injection and MRI. She was given a subacromial injection on 03/26/25 by urgent care, which had provided relief for a couple of days. Allergies No Known Allergies Allergy (Verified 07/03/25 11:57) HPI HPI OV- LT shoulder tendonitis, WC DOI 03/04/25: Details: 25-year-old female returns to the office today for a follow-up left shoulder pain status post work injury on 03/04/2025. She states she has been working with physical therapy but continues to have discomfort in the shoulder especially with lifting her arm up overhead. She did have an injection at urgent care which she states was only helpful for a couple of days. [facility] Medical History Bilateral hand pain Insomnia Social History Current occupational status: unemployed Current occupation: [employer] Review of Systems Const All systems reviewed & are unremarkable except as noted in HPI and below Physical Exam Vital Signs: BMI result Body Mass Index 33.8 Extrem Other: Left shoulder normal to inspection. She does have discomfort with forward flexion and a positive Esqueda. Office Procedures AMB Joint Injection/Aspiration Joint Injection/Aspiration Primary Site: left shoulder Injected: with 4 mL of, 1% plain lidocaine, 0.25% bupivacaine, in the subcromial space and decadron Approach Used: posterolateral Procedure: The patient tolerated the procedure well and there was some relief with the local anesthesia Coding 33638 - Glenohumeral/Tronchanteric Bursa/Intraarticular Procedure code (CPT) selection complete Assessment & Plan Assessment & Plan (1) Left shoulder tendonitis: Code(s): M77.8 - Other enthesopathies, not elsewhere classified Category: Medical Plan: We discussed options today which includes continued physical therapy however I did offer her a steroid injection in the subacromial space to alleviate her symptoms to hopefully allow her to progress more with PT. She would like to pursue the injection. Patient tolerated injection well. I also ordered an MRI of the left shoulder and further evaluate the source of her pain. She will continue with physical therapy and see me back once the scan is complete. Coding Level of Care Code Est Pt Level 3 (08253) Complex EM visit Add On G2211 Diagnoses Left shoulder tendonitis M77.8 CPT Codes Coding - Joint 7: 24044 - Glenohumeral/Tronchanteric Bursa/Intraarticular ([id number])
[2025-07-03 11:57] VITALS: BMI 33.8
--- OUTSIDE RECORDS SUMMARY | 2025-07-03 14:34 | XMS_ITS | Encounter Summary ---
Author Organization [employer] Address [address] [place] [address] Care Team Providers Care Bread Room Hand Name Role Phone Nydia Oro DO Primary Care Provider Reason for Visit * Reason Onset Date Comments Med Refill 01/29/2024 Encounter Details Date Type Department Care Team (Late st Contact Info) Description 01/29/2024 Refill [facility] [address] [place] [address] Nydia Oro DO [address] [place], [place] [phone] Social History Tobacco Use Types Packs/Day Years [...] documented as of this encounter Care Teams Bread Room Hand Relationship Specialty Start Date End Date Nydia Oro DO [address] [place] [id number] PCP - General Family Medicine 11/24/20 documented as of this encounter
--- OUTSIDE RECORDS SUMMARY | 2025-07-03 14:34 | XMS_ITS | Encounter Summary ---
Author Organization [facility] Address [address] [place] [address] Phone Care Team Providers Care Financial Dealers Name Role Phone JersonNydia ng Primary Care Provider Encounter Details Date Type Department Care Team (Late st Contact Info) Description 01/24/2022 Ancillary Orders [facility] [address] [place] [phone] Elizabeth Alberto, [facility] [address], [address] [place] [address] [email or web address] Missed Social History Tobacco Use Types Packs/Day [...] on file documented as of this encounter Results * [...] Nj Crowley MD - 01/24/2022 INDICATION: F/U AB, s/p misoprostol Exam Date: 01/24/2022 Last [...] Missed documented in this encounter Care Teams Financial Dealers Relationship Specialty Start Date End Date Nydia Oro DO [address] [place] [id number] PCP - General Family Medicine 12/14/21 documented as of this encounter Additional Source Comments The information contained in this document represents components of the legal health record. It is not the complete legal health record.[facility]
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
--- OUTSIDE RECORDS SUMMARY | 2025-07-03 14:35 | XMS_ITS | Encounter Summary ---
Author Organization [facility] Address [address] [place] [phone] Phone Care Team Providers Care Packaging Machine Supplies Distributor Name Role Phone Nydia Oro DO Primary Care Provider Encounter Details Date Type Department Care Team (Late st Contact Info) Description 01/27/2022 Procedure Pass OR Admitting Dept - Virtual Department [address] [place] [address] Social History Tobacco Use Types Packs/Day Years Used Date Smoking Tobacco: Never Smokeless Tobacco: Never Alcohol Use Standard Drinks/Week Comments Yes 2 (1 standard drink = 0.6 oz pur e alcohol) socially Comments Yes Sex and Gender Information Value Date Recorded Sex Assigned at Not on file Legal Sex Female 12:46 PM EDT Gender Identity Not on file Sexual Orientation Not on file documented as of this encounter Plan of Treatment Not on file documented as of this encounter Visit Diagnoses Not on filedocumented in this encounter Care Teams Packaging Machine Supplies Distributor Relationship Specialty Start Date End Date Nydia Oro DO [address] [place] [id number] PCP - General Family Medicine 12/14/21 documented as of this encounter Additional Source Comments The information contained in this document represents components of the legal health record. It is not the complete legal health record.[facility]
--- OUTSIDE RECORDS SUMMARY | 2025-07-03 14:35 | XMS_ITS | Encounter Summary ---
Author Organization [facility] Address [address] [place] [address] [place] [phone] Phone Care Team Providers Care Manager Infusion Name Role Phone Nydia Oro DO Primary Care Provider Encounter Details Date Type Department Care Team (Late st Contact Info) Description 05/05/2025 Procedure Pass OR Admitting Dept - Virtual Department [address] [place] [id number] Social History Tobacco Use Types Packs/Day Years Used Date Smoking Tobacco: Former Cigarettes Smokeless Tobacco: Never Alcohol Use Standard Drinks/Week [...] on filedocumented in this encounter Care Teams Manager Infusion Relationship Specialty Start Date End Date Nydia Oro DO [address] [place] [address] PCP - General Family Medicine 12/14/21 documented as of this encounter Additional Source Comments The information contained in this document represents components of the legal health record. It is not the complete legal health record.[facility]
--- OUTSIDE RECORDS SUMMARY | 2025-07-03 14:35 | XMS_ITS | Encounter Summary ---
Author Organization [facility] Address [address] [place] [address] Phone Care Team Providers Care Motors And Generators Inspector Name Role Phone JersonNydia ng Primary Care Provider Encounter Details Date Type Department Care Team (Late st Contact Info) Description 05/01/2025 Telephone [facility] [address] [place] [address] [place] [phone] Aminta Laughlin CNM [address] [facility] [address] [place] [address] [email or web address] Social History Tobacco Use Types Packs/Day Years [...] on file documented as of this encounter Progress Notes * Nadja Curry, ROWAN - 05/04/2025 12:43 PM EDT Order placed * Oscar Powell - 05/04/2025 11:59 AM EDT Pt is requesting repeat imaging before procedure. Sending to [facility] health information provider for order * Shakira Martinez - 05/04/2025 9:47 AM EDT Pt requesting call between 11-12 * Oscar Powell - 05/04/2025 9:08 AM EDT lmom * Aminta Laughlin CNM - 05/01/2025 3:26 PM EDT Zeferino Moore, Pt needs a D&C ANAIS for MAB. Please call pt with appt. Thanks! documented in this encounter Plan of Treatment Not on file documented as of this encounter Visit Diagnoses Diagnosis Missed - Primary documented in this encounter Care Teams Motors And Generators Inspector Relationship Specialty Start Date End Date Nydia Oro DO [address] [place] [phone] PCP - General Family Medicine 12/14/21 documented as of this encounter Additional Source Comments The information contained in this document represents components of the legal health record. It is not the complete legal health record.[facility]
--- OUTSIDE RECORDS SUMMARY | 2025-07-03 14:35 | XMS_ITS | Clinical Summary ---
Author Organization [employer] Address [address] [facility] [address] [place] [address] Care Team Providers Care Drop Wire Stringer Name Role Phone Nydia Oro Primary Care Provider Allergies No known active allergies Medications cloNIDine (Catapres) 0.1 MG tablet TAKE 1 TABLET BY MOUTH DAILY AT BEDTIME NEEDED FOR INSOMNIA/ANXIE TY 2 Active ibuprofen 800 MG tablet Take 1 tablet by mouth every 8 (eight) hours. 2 Active ketoconazole (NIZOral) 2 % shampoo APPLY TOPICALLY 2 TIMES A WEEK 240 mL 1 4 Active sertraline (Zoloft) 50 MG tablet TAKE 1 TABLET BY MOUTH EVERY DAY IN THE MORNING 30 tablet 5 Active Active Problems Problem Noted Date Diagnosed Date Swelling of left palatine tonsil 06/24/2025 Anxiety 10/08/2023 Major depression, recurrent, chronic 12/26/2021 Overview (09/29/2022): -Currently on Clonidine and celexa -PCP is her prescriber Last Assessment & Plan: -Currently on Clonidine and celexa -PCP is her prescriber -Advised on mental health during and possibly needing to adjust meds during her . Pt encouraged to reach out to us if she is not feeling well. Pt verbalized understanding History of suicide attempt 12/26/2021 Overview (09/29/2022): -In Highschool -Contracts for safety during intake. -States she is stable at this time -Denies SI/HI Last Assessment & Plan: -In Highschool -Contracts for safety during intake. 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 4 Myopia 09/19/2013 BMI 37.0-37.9, adult 08/07/2012 Encounters Date Type Department Care Team Description 06/25/2025 Telephone [facility] [place] [address] Brigid Murcia MD Referral 06/23/2025 3:45 PM EDT Office Visit [address] [address] Brigid Murcia MD Swelling of left palatine tonsil (Primary Dx); Lesion of tonsil 06/23/2025 Travel 06/19/2025 Population Health Risk Score [facility] ([facility]) Department [address] [phone] Provider, Population Health Generic 06/18/[address] [address] Nydia Oro DO ER Follow-up 06/12/2025 Orders Only GENERIC EXTERNAL DATA DEPARTMENT Provider, Generic External Data 04/17/2025 Orders Only [facility] [address] [place] [phone] Anita Sheppard RN 04/06/2025 Travel 04/05/[address] [address] Nydia Oro DO 04/04/2025 Orders Only GENERIC EXTERNAL DATA DEPARTMENT Provider, Generic External Data from Last 3 Months Immunizations Immunization Administration Dates Next Due DTP 07/19/2004, 1,01/17/2000,08/23,1999 HPV, Quadrivalent 08/07/2012,08/04/2011,02/11/20 10 Hep A, ped/adol, 2 dose 10/04/2016,02/18/2016 Hep B, Adolescent or Pediatric 01/17/2000,1998,1999 Hib (HbOC) 04/16/2000, 0,1999,07/08 IPV 07/19/2004, 0,1999,07/08 Influenza injectable quadriv alent preservative free 07/20/2021,09/21/2019,10/04/2016 Influenza, IIV3, injectable 09/06/2009 Influenza, live, intranasal 08/07/2012 MMR 05/07/2003,04/16/2000 Meningococcal MCV4P ACYW-135 02/18/2016,02/11/20 10 Pfizer Covid-19 Vaccine 12+ gee-sucrose (Ansari Cap) 12/13/2021,11/09/2021 Pneumococcal Conjugate PCV 20 10/08/2023 TD (adult), 2 Lf tetanus tox oid, preservative free, adsorbed 10/08/2023 Tdap 02/10/2010 Varicella 02/10/2010,01/17/2000 Family History Medical History Relation Name Comments No Known Problems Father Diabetes Maternal Grandfather Throat cancer Maternal Grandfather Diabetes Maternal Grandmother Stroke Maternal Grandmother No Known Problems Sister Relation Name Status Comments Father Maternal Grandfather Maternal Grandmother Sister Social History Tobacco Use Types Packs/Day Years Used Date Smoking Tobacco: Former Cigarettes Smokeless Tobacco: Never Tobacco Cessation:Counseling Given: Not Answered Depression Answer Date Recorded Patient Health Questionnaire-9 [...] Orientation Straight 07/22/2023 9: 00 PM EST Last Filed Vital Signs Vital Sign Reading Time Taken Comments Blood Pressure 132/76 06/23/2025 4:04 PM EDT Pulse 80 06/23/2025 4:04 PM EDT Temperature 36.2 C (97.1 F) 06/23/2025 4:04 PM EDT Respiratory Rate 20 06/23/2025 4:04 PM EDT Oxygen Saturation 99% 09/29/2022 1:30 PM EST Inhaled Oxygen Concentration - - Weight 85.2 kg (187 lb 12.8 oz) 06/23/2025 4:04 PM EDT Height 154.9 cm (5' 1 ) 06/23/2025 4:04 PM EDT Body Mass Index 35.48 06/23/2025 4:04 PM EDT Plan of Treatment Health Maintenance Due Date Last Done Comments Disability Screening 1999 Alcohol/Substance Use Screening 2011 Family Planning (PISQ) 2014 Pap Smear 07/20/2024 07/20/2021 Depression Screening 10/08/2024 10/08/2023, 10/08/19 24 SDOH Screening 10/08/2024 10/08/2023 COVID-19 Vaccine ( season) 2025 12/13/2021, 11/09/2021 Influenza Vaccine (#1) 2025 3, 07/20/2021, 09/21/2019, Additional history exists Tobacco Screening 06/23/2026 06/23/2025 DTaP/Tdap/Td Vaccines (9 - Td or Tdap) 03/29/2034 03/29/2024, 10/08/2023, 02/10/2010, Additional history exists Zoster Vaccines (1 of 2) 2049 RSV Patients and Patients Aged 60 years or older (1 - 1-dose 75+ series) 2074 Hepatitis B Vaccines Completed 01/17/2000, 1999, 1999 HIB Vaccines Completed 04/16/2000, 10/1999, 1999, Additional history exists IPV Vaccines Completed 07/19/2004, 08/17, 1999, Additional history exists HPV Vaccines Completed 08/07/2012, 07/18, 02/10/2010 Meningococcal Vaccine Completed 02/18/2016, 010 Hepatitis A Vaccines Completed 10/04/2016, 02/18/20 16 Pneumococcal Vaccine: Pediatrics (0 to 5 Years) and At-Risk Patients (6 to 49) Years Aged Out 10/08/2023 No longer eligible based on patient's age to complete this topic HIV Screening Completed 03/27/2025, 03/17, 05/05/2021, Additional history exists Hepatitis C Screening Completed 03/27/2025 , 03/30/2022, 12/20/2020 Meningococcal B Vaccine Aged Out No l onger eligible based on patient's age to complete this topic RSV under 20 months Aged Out No longe r eligible based on patient's age to complete this topic Rotavirus Vaccines Aged Out No longer eligible based on patient's age to complete this topic Procedures Procedure Name Priority Date/Time Associated Diagnosis Comments COVID-19 ID NOW (PEDROZA) Routine 06/12/2025 7:07 PM EDT INFLUENZA A B2 ID NOW (PEDROZA) Routine 06/12/2025 7:07 PM EDT STREP A NUCLEIC ACID Routine 06/12/2025 7:07 PM EDT CHLAMYDIA/GONORRHEA VAGINAL SWAB ([facility]) Routine 04/14/2025 CHLAMYDIA/GONORRHEA RECTAL SWAB ([facility]) Routine 04/14/2025 CULTURE, URINE, ROUTINE Routine 04/04/2025 6:47 PM EDT SLIDE REVIEW Routine 04/04/2025 6:30 PM EDT CBC WITH AUTO DIFFERENTIAL Routine 04/04/2025 6:30 PM EDT HCG, TOTAL, QN Routine 04/04/2025 6:29 PM EDT COMPREHENSIVE METABOLIC PANEL Routine 04/04/2025 6:29 PM EDT URINALYSIS, COMPLETE, WITH REFLEX TO CULTURE Routine 04/04/2025 6:29 PM EDT HEPATITIS C ANTIBODY ([facility]) Routine 03/27/2025 HIV ANTIBODY/ANTIGEN ([facility]) Routine 03/27/2025 THINPREP IMAGING SYSTEM PAP Routine 07/20/2021 10:24 AM EDT from Last 3 Months or Most Recently Relevant to Health Maintenance Results * Influenza A B2 ID NOW (Pedroza) (06/12/2025 7:07 PM EDT) IDNOW SERIAL# [id number] [facility] Influenza A Negative Negative [facility] Influenza B2 Negative Negative [facility] Influenza A B2 Note See Note [facility] Comment:The Pedroza ID NOW In fluenza A B2 test is used for thequalitative detection of influenza A and B from patientswith signs and symptoms of respiratory infection.Negative results do not preclude influenza virus infectionand should not be used as the sole basis for diagnosis,treatment or other patient management decisions.There is a risk of false negative results due to thepresence of variants in the viral targets of the assay, lowlevels of virus in the specimen and co- infection withRespiratory Syncytial Virus. 06/12/2025 7:07 PM EDT 06/12/2025 7:18 PM EDT Generic External Data Provider LAB MICROBIOLOGY - GENERAL ORDERABLES Final Result Performing Organization Address [facility] de Phone Number [facility] [address] [place] [phone] * Strep A Nucleic Acid (06/12/2025 7:07 PM EDT) IDNOW SERIAL# [id number] [facility] Strep A Nucleic Acid Negative Negative [facility] Comment:All test results mus t be correlated with clinical findings.This test has not been evaluated for monitoring treatment ofinfection.Additional follow-up testing using the culture method isrequired if the result is negative and clinical symptomspersist, or in the event of an acute rheumatic feveroutbreak. 06/12/2025 7:07 PM EDT 06/12/2025 7:18 PM EDT Generic External Data Provider LAB MICROBIOLOGY - GENERAL ORDERABLES Final Result Performing Organization Address [facility] de Phone Number [facility] [address] [place] [phone] * COVID-19 ID NOW (PEDROZA) (06/12/2025 7:07 PM EDT) IDNOW SERIAL# [id number] [facility] COVID-19 TEST Negative Negative [facility] COVID-19 NOTE See Note [facility] Comment: Results are for the identification of SARS-CoV2 RNA. TheSARS-CoV2 RNA is generally detectable in respiratory samplesduring the acute phase of infection. Positive results areindicative of the presence of SARS-CoV-2 RNA; clinicalcorrelation with patient history and other diagnosticinformation is necessary to determine patient infectionstatus. Positive results do not rule out bacterial infectionor co- infection with other viruses.Testing facilities within the [place] and itsterritories are required to report all positive results tothe appropriate public health authorities.Negative results should be treated as presumptive and, ifinconsistent with clinical signs and symptoms or necessaryfor patient management, should be tested with differentauthorized or cleared molecular tests. Negative results donot preclude SARS-CoV2 RNA infection and should not be usedas the sole basis for patient management decisions. Negativeresults should be considered in the context of a patient'srecent exposures, history and the presence of clinical signsand symptoms consistent with COVID-19.This test has been authorized by the FDA under an EmergencyUse Authorization (EUA) for use by authorized laboratories.Testing performed on the S-cubism ID NOW utilizing NAAT. 06/12/2025 7:07 PM EDT 06/12/2025 7:18 PM EDT us Generic External Data Provider LAB MOLECULAR YOSHI GNOSTICS ORDERABLES Final Result [facility] [address] [place] [phone] * Chlamydia/Gonorrhea Vaginal Swab ([facility]) (04/14/2025) Chlamydia Vaginal Swab Negative Negative, Indeterminate, None Detected, Invalid, Specimen unsatisfactory for evaluation, Weakly Positive, 2+ Gonorrhea Vaginal Swab Negative Negative, Indeterminate, None Detected, Invalid, Specimen unsatisfactory for evaluation, Weakly Positive, 2+ Swab Vaginal structure / Unknown 04/14/2025 us Historical Provider LAB MICROBIOLOGY - GENERA L ORDERABLES Final Result * Chlamydia/Gonorrhea, Rectal Swab ([facility]) (04/14/2025) Chlamydia Rectal Swab Negative Negative, Indeterminate, None Detected, Invalid, Specimen unsatisfactory for evaluation, 2+ Gonorrhea Rectal Swab Negative Negative, Indeterminate, None Detected, Invalid, Specimen unsatisfactory for evaluation, 2+ Swab 04/14/2025 Historical Provider MD LAB MICROBIOLOGY - GENERA L ORDERABLES Final Result * Culture, Urine, Routine (04/04/2025 6:47 PM EDT) Urine Urine specimen obtained by clean catch procedure / Unknown 04/04/2025 6:47 PM EDT 04/04/2025 6:47 PM EDT Comment:UACC Narrative [facility] - 04/06/2025 7:53 AM EDT Urine Culture Report Result Urine Culture 10,000 to 50,000 cfu/ml Urine Culture Mixed bacterial kandice characteristic of Urine Culture urogenital contamination. Specimen Source: Urine clean catch Generic External Data Provider LAB MICROBIOLOGY - GENERAL ORDERABLES Final Result Performing Organization Address [facility]/ZIP Co de Phone Number [facility] [address] [place] [phone] * Slide Review (04/04/2025 6:30 PM EDT) Slide Review VERIFIED [facility] 04/04/2025 6:30 PM EDT 04/04/2025 6:35 PM EDT Generic External Data Provider LAB BLOOD ORDERAB LES Final Result Performing Organization Address [facility] Co de Phone Number [facility] [address] [place] [phone] * (ABNORMAL) CBC auto differential (04/04/2025 6:30 PM EDT) White Blood Count 11.1(H) 4.8 - 10.8 X10*3/uL [facility] Red Blood Count 4.88 4.20 - 5.50 X10*6/uL [facility] Hemoglobin 10.9(L) 12.0 - 16.0 g/dl [facility] Hematocrit 35.7(L) 37.0 - 47.0 % [facility] Mean Corpuscular Volume 73.2(L) 80.0 - 98.0 fL [facility] Mean Corpuscular Hemoglobin 22.3(L) 27.0 - 33.0 pg [facility] Mean Corpuscular HGB Conc 30.5(L) 31.0 - 35.0 g/dl [facility] Red Cell Distribution Width 16.7(H) 11.0 - 16.0 % [facility] Platelet Count 220 160 - 400 X10*3/uL [facility] Mean Platelet Volume 11.5 9.4 - 12.3 fL [facility] Neutrophils Percent Auto 78.6(H) 45 - 73 % [facility] Imm Gran Pct Auto 0.2 0.0 - 0.4 % [facility] Lymphocytes Percent Auto 14.2(L) 20 - 40 % [facility] Monocytes Percent Auto 5.8 2 - 11 % [facility] Eosinophils Percent Auto 0.6 0 - 4 % [facility] Basophils Percent Auto 0.6 0 - 2 % [facility] NRBC Pct Auto 0.0 0.0 - 0.2 /100WBC [facility] Neutrophils Absolute Auto 8.7(H) 2.0 - 8.3 x10*3/uL [facility] Imm Gran Abs Auto 0.02 0.00 - 0.03 X10*3/uL [facility] Lymphocytes Absolute Auto 1.6 1.2 - 4.9 X10*3/uL [facility] Monocytes Absolute Auto 0.7 0.1 - 1.2 X10*3/uL [facility] Eosinophils Absolute Auto 0.1 0.0 - 0.4 X10*3/uL [facility] Basophils Absolute Auto 0.1 0.0 - 0.2 X10*3/uL [facility] NRBC Abs Auto 0.000 0.0 - 0.012 X10*3/uL [facility] 04/04/2025 6:30 PM EDT 04/04/2025 6:35 PM EDT us Generic External Data Provider LAB BLOOD ORDERAB LES Edited Result - Final Performing Organization Address [facility]/ZIP Co de Phone Number [facility] [address] [place] [phone] * (ABNORMAL) Urinalysis, Complete, with Reflex to Culture (04/04/2025 6:29 PM EDT) Color Urine Yellow [facility] Appearance Urine Cloudy [facility] PH 6.5 5.0 - 9.0 [facility] Glucose Urine UA Negative Negative mg/dL [facility] Urine Blood Negative Negative [facility] Specific [place] - Urine 1.025 1.005 - 1.025 [facility] Urine Protein Trace Neg-Trace mg/dL [facility] Urine Ketones Negative Negative mg/dL [facility] Nitrite Urine Negative Negative [facility] Leukocyte Esterase Urine Small (1+)(A) Negative [facility] RBC Urine 0-2 0 - 2 /HPF [facility] Urine WBC 6-10(A) 0 - 5 /HPF [facility] Urine Squamous Epithelial Cell 11-20 0 - 2 /HPF [facility] Urine Bacteria 4+ None Seen [facility] Hyaline Casts, Urine 0-2 0 - 2 /LPF [facility] 04/04/2025 6:29 PM EDT 04/04/2025 6:35 PM EDT Narrative [facility] - 04/04/2025 6:46 PM EDT [id number], Clean Catch us Generic External Data Provider LAB URINE ORDERAB LES Final Result Performing Organization Address [facility]/ZIP Co de Phone Number [facility] [address] [place] [phone] * hCG, Total, Quantitative (04/04/2025 6:29 PM EDT) HCG Quantitative 1,549 mIU/mL [facility] Comment:Weeks post LMP Appro ximate hCG(Last Menstrual Period) Range (mIU/ml)3 - 4 weeks 9 - 1304 - 5 weeks 75 - 2,6005 - 6 weeks 850 - 20,8006 - 7 weeks 4000 - 100,2007 - 12 weeks 11,500 - 289,14146 - 16 weeks 18,300 - 137,56519 - 29 weeks (2nd trimester) 1,400 - 53,29022 - 41 weeks (3rd trimester) 940 - 60,000The Pedroza B- hCG assay is used for the early detection ofpregnancy; it cannot be used to diagnose any conditionunrelated to . If a B-hCG level is not supportedby the clinical evidence, results should be confirmed by analternative method (qualitative urine hCG, for example). 04/04/2025 6:29 PM EDT 04/04/2025 6:35 PM EDT us Generic External Data Provider LAB BLOOD ORDERAB LES Final Result [facility] [address] [place] [phone] * Comprehensive Metabolic Panel (04/04/2025 6:29 PM EDT) Sodium 141 135 - 145 mmol/L [facility] Potassium 3.6 3.3 - 5.1 mmol/L [facility] Chloride 106 96 - 108 mmol/L [facility] Carbon Dioxide 25 22 - 29 mmol/L [facility] Anion Gap 14 12 - 20 [facility] Urea Nitrogen (BUN) 9 9 - 16 mg/dL [facility] Creatinine, Serum 0.75 0.5 - 1.4 mg/dL [facility] Creatinine Clr Calc Pharmacy 116.6 [facility] Comment:Provided height and weight: 160.02 cm,83.915 kg.eGFR (calculated from the MDRD study equation) and eCrCl(calculated from the Cockcroft-Gault equation) are based ondifferent parameters and may not yield comparable results.If eCrCl result is absurd, please check patient'sheight/weight. Estimated Glomerular Filt Rate >60 [facility] Comment:Chronic Kidney Disea se: Estimated GFR < 60 mL/min/[id number] Kidney Disease: Estimated GFR < 15 mL/min/1.73m2 Glucose 89 60 - 115 mg/dL [facility] Calcium 9.5 8.4 - 10.2 mg/dL [facility] Bilirubin, Total 0.9 0.0 - 1.0 mg/dL [facility] Aspartate Amino Transferase 19 5 - 31 U/L [facility] Alanine Aminotransferase 14 0 - 31 U/L [facility] Total Protein 7.8 6.5 - 8.0 g/dL [facility] Albumin Level 4.7 3.5 - 5.0 g/dL [facility] Alkaline Phosphatase 89 39 - 117 U/L [facility] 04/04/2025 6:29 PM EDT 04/04/2025 6:35 PM EDT Generic External Data Provider LAB BLOOD ORDERAB LES Final Result [facility] [address] [place] [address] [phone] * Hepatitis C Antibody ([facility]) (03/27/2025) Pathologist [facility] Hepatitis C Ab Nonreactive Blood 03/27/2025 Historical Provider LAB BLOOD ORDERABLES Monika l Result * HIV Ab/Ag ([facility]) (03/27/2025) [facility] HIV Ag/Ab Nonreactive Blood 03/27/2025 Historical Provider LAB BLOOD ORDERABLES Monika l Result * THINPREP TIS PAP (07/20/2021 10:24 AM EDT) Clinical Information: None given [facility] COMMENT SEE COMMENT [facility] Comment: EXPLANATORY NOTE: The Pap is a screening test for cervical cancer. It is not a diagnostic test and is subject to false negative and false positive results. It is most reliable when a satisfactory sample, regularly obtained, is submitted with relevant clinical findings and history, and when the Pap result is evaluated along with historic and current clinical information. COMMENT: This Pap test has been evaluated with computer assisted technology. [facility] Cotton Puller : SEE COMMENT [facility] Comment: RK CT(ASCP) CT screening location: [address] [address] Infection Shift in vaginal kandice suggestive of bacterial vaginosis. [facility] Interpretation/R esult: Negative for intraepithelial lesion or malignancy. [facility] LMP: 07/12/2021 [facility] Prev. BX: NONE GIVEN [facility] Prev. PAP: NONE GIVEN [facility] SOURCE: None given [facility] Statement Of Adequacy: SEE COMMENT [facility] Comment: Satisfactory for evaluation. Endocervical/transformation zone component present. 07/20/2021 10:2 4 AM EDT Malou Baker CNM LAB PATHOLOGY ORDERABLES Final Result Performing Organization Address City/State/[facility] Co de Phone Number [facility] [address] from Last 3 Months or Most Recently Relevant to Health Maintenance Insurance HSN PARTIAL Care Teams Drop Wire Stringer Relationship Specialty Start Date End Date Nydia Oro DO [address] [place] [address] PCP - General Family Medicine 11/24/20
== END 2025-07-03 13:58 | disposition home or self-care (01) ==
LOC: HO.HOS 11:44
PROVIDERS: PCP Family Medicine; Visit Provider Physician Assistant
DX: M77.8 Other enthesopathies, not elsewhere classified (principal)
CPT/HCPCS: 20610; 99213

== ENCOUNTER → 2025-07-03 11:44 | Outpatient (BNVA) | payer OTHER, MEDICAID, SELFPAY | PROVIDERS: PCP Family Medicine; Visit Provider Physician Assistant | DX: M25.512 Pain in left shoulder (principal); M77.8 Other enthesopathies, not elsewhere classified | CPT/HCPCS: 20610; 99212; J0665; J1100; J2003 ==

== ENCOUNTER 2025-08-12 09:35 | Emergency (ER) | payer OTHER, SELFPAY ==
--- NOTE | 2025-08-12 09:44 | ED.NAVMDI ---
HPI - Nausea/Vomiting/Diarrhea General Chief complaint: Back Pain/Injury Stated complaint: Nausea Vomiting Diarrhea Time Seen by Provider: 08/12/25 09:42 Source: patient and RN notes reviewed Mode of arrival: ambulatory Limitations: no limitations History of Present Illness ED Provider: Cary Montgomery PA-C HPI Narrative: This is a [id number]-female, with a past medical history of left shoulder tendinitis, who presents emergency department with concerns of bilateral hand pain. 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 She states that the symptoms are worse in the right but involved both hands and all fingers. Patient reports that the pain is a burning like sensation, achiness, and wakes her up from sleep. She denies any specific injury or trauma that would have caused her to have the symptoms. She has been taking [id number] ibuprofen and Tylenol which has provided her with some relief. She also has been applying heat packs with any benefit. She states several years ago she had similar symptoms, and had a nerve conduction study and was negative for carpal tunnel. Her symptoms resolved over time. She also reports bilateral low back pain, no known trauma or injury. No saddle anesthesia. No urinary or bowel retention or incontinence. No urinary symptoms. No abdominal pain. Also endorsing 2 episodes of vomiting over the last several days. 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 Denies any undercooked or raw food. No fevers or chills. She states that she is not actively nauseous. Patient has been seen by Orthopedics, last visit was on July 03, 2025 for left shoulder tendonitis, with a date of injury on 03/04/2025. She was attending physical therapy without any improvement. She continue to have pain and limited range of motion at that visit. She had a subacromial injection on 03/26/2025 by urgent care which provided her with some relief. They did perform a joint injection/aspiration on 07/03. She is awaiting an MRI. MD elicited complaint: nausea and vomiting Exacerbating factors: none Relieving factors: none Related Data Home Medications ?Medication ?Instructions ?Recorded ?Confirmed citalopram 10 mg tablet (Celexa) 10 mg PO DAILY 07/22/20 05/12/25 clonazepam 0.125 mg disintegrating 0.125 mg PO DAILY 05/26/22 05/12/25 tablet Previous Rx's ?Medication ?Instructions ?Recorded ibuprofen 800 mg tablet 800 mg PO Q8H PRN pain 30 days #90 05/04/25 tabs Allergies Allergy/AdvReac Type Severity Reaction Status Date / Time No Known Allergies Allergy Verified 08/12/25 09:49 Review of Systems Review of Systems: Constitutional : No Fever, No Chills ENT/Mouth : No sore throat, No Rhinorrhea Eyes: No Eye Pain, No Swelling, No Redness Cardiovascular : No Chest Pain, No SOB Respiratory : No Cough, No Sputum Gastrointestinal : +Nausea (resolved), + Vomiting (resolved), No Diarrhea, No abdominal Pain Genitourinary : No Dysuria, No Hematuria Musculoskeletal : No joint pain, + Myalgias, No Joint Swelling Skin : No Skin Lesions, positive skin rash Neuro : No Weakness, No Numbness, No Headache All other systems reviewed and are negative Yes all other systems are reviewed and are negative Constitutional: Constitutional: Reports as per [facility] Past Medical History Attestation statement: The following information was validated with the patient. Medical History Bilateral hand pain Insomnia Social History Social History Smoked in Last 30 Days: No Use of substances other than those prescribed or required for medical reasons: Yes Substance Use Type: Marijuana Advance Directives: No Advance Directives Information Provided: No Do you have a plan to hurt others: No Plan Patient : No Current occupational status: unemployed Current occupation: [employer] Physical Exam Vital Signs: Vital Signs: Last Vital Signs Temp 98.3 F 08/12/25 13:27 Pulse 58 08/12/25 13:27 Resp 14 08/12/25 13:27 BP 114/66 08/12/25 13:27 Pulse Ox 98 08/12/25 13:27 O2 Del Method Room Air 08/12/25 13:27 BMI result Body Mass Index 33.8 Const: General: cooperative, comfortable and no acute distress Orientation/consciousness: patient oriented x3 Limitations: no limitations HEENT: Head: Yes normal to inspection, Yes normocephalic and Yes atraumatic Ears: hearing grossly normal bilaterally General nose exam: Normal external nose present Face and sinus: Yes normal facial exam Mouth: Normal oral and palatal mucosa present, oropharynx normal and moist mucous membranes Throat: Yes posterior oropharynx normal Eyes: General: appearance normal, both eyes and all related structures Eyelids: Yes eyelids normal Conjunctivae: conjunctivae normal Sclerae: sclerae normal Pupils: Equal, round and reactive pupils present EOM: EOMs intact bilaterally Neck: Neck: Yes normal visual inspection, Yes full ROM and Yes no lymphadenopathy Lymphatic: no lymphadenopathy noted Chest: Chest palpation & inspection: normal inspection of the chest Resp: Effort & Inspection: normal respiratory effort and able to speak in complete sentences Auscultation: clear to auscultation bilaterally, no crackles, no rales, no rhonchi and no wheezes Cardio: Rate: regular rate Rhythm: regular rhythm Heart sounds: S1 normal heart sound present and S2 normal heart sound present GI: Other: Abdomen is soft, nontender, nondistended. Inspection: Yes normal to inspection Back/Spine/Pelvis: Other: TTP overlying lumbar paraspinous muscles. Skin: General skin exam: no rashes or lesions noted Trauma: no lacerations or abrasions Wounds: no wounds Neuro: General: patient oriented x3 and moves all extremities Cranial nerves: Yes Equal, round and reactive pupils present Extrem: Other: Bilateral upper extremities are well perfused. Patient with positive Tinel's, positive prayer and Phalen's. Strong radial pulse. Capillary refill less than 2 seconds. Full ROM without difficulty. Good commercial green building architect strength bilaterally. General: Yes normal to inspection Right upper extremity: normal to inspection Left upper extremity: normal to inspection Right lower extremity: normal to inspection Left lower extremity: normal to inspection Medications Administered Discontinued Medications Generic Name Dose Route Start Last Admin Trade Name Freq PRN Reason Stop Dose Admin Ketorolac Tromethamine 30 mg 08/12/25 11:41 08/12/25 11:56 Ketorolac Tromethamine 30 Mg/Ml Vial IM 08/12/25 11:42 30 mg ONCE ONE Administration Medical Decision Making Medical Decision Making [facility] Narrative: This is a 25-year-old female who presents emergency department with multiple complaints. On arrival, vital signs within normal limits. Patient with bilateral hand pain/paresthesias, likely related to repetitious strain due to new job. Exam reproduces burning and tingling with prayer, Phalen's, and Tinel's. This is consistent with nerve irritation from inflammatory process. We will administer Toradol, and placed in wrist splints. Patient also be referred to youth services specialist for further evaluation ongoing management. Patient also has bilateral lumbar paraspinous muscle tenderness, no midline spine tenderness, no profound injury therefore imaging not indicated at this time. Patient also presented with nausea vomiting and loose stool, her abdomen is soft and nontender. Will obtain basic labs to rule out any abnormalities. 12:56 PM 08/12/2025 (Cary Montgomery PA-C): Labs returned, she has no leukocytosis, she does have a microcytic anemia with an H&H of 9.7/32.8, chemistry revealing no electrolyte derangement. She is not . She has no abdominal pain therefore no additional diagnostic imaging needed. No red flag back symptoms on exam. Patient feeling much better after receiving Toradol injection as well as placing in wrist splints. Patient will follow-up with the youth services specialist. Given return precautions, she understands and agrees with plan. Patient stable for discharge. Differential Diagnosis Differential Diagnoses: The differential diagnosis associated with the presentation includes Viral gastroenteritis, carpal tunnel, sprain, strain, lumbar strain, spasm Lab Data [facility] Lab Attestation statement: I reviewed the patient's lab results. See [facility] 08/12/25 12:01 08/12/25 12:01 Labs: Lab Results 08/12/25 Range/Units 12:01 WBC 5.3 (4.8-10.8) X10*3/uL RBC 4.22 (4.20-5.50) X10*6/uL Hgb 9.7 L (12.0-16.0) g/dl Hct 32.8 L (37.0-47.0) % MCV 77.7 L (80.0-98.0) fL MCH 23.0 L (27.0-33.0) pg MCHC 29.6 L (31.0-35.0) g/dl RDW 14.7 (11.0-16.0) % Plt Count 198 (160-400) X10*3/uL MPV 11.7 (9.4-12.3) fL Immature Gran % (Auto) 0.4 (0.0-0.4) % Neut % (Auto) 81.0 H (45-73) % Lymph % (Auto) 11.6 L (20-40) % Horry % (Auto) 5.1 (2-11) % Eos % (Auto) 1.7 (0-4) % Baso % (Auto) 0.2 (0-2) % Lymph # (Auto) 0.6 L (1.2-4.9) X10*3/uL Horry # (Auto) 0.3 (0.1-1.2) X10*3/uL Eos # (Auto) 0.1 (0.0-0.4) X10*3/uL Baso # (Auto) 0.0 (0.0-0.2) X10*3/uL Abs Immat Gran (auto) 0.02 (0.00-0.03) X10*3/uL Absolute Neuts (auto) 4.3 (2.0-8.3) x10*3/uL Absolute Nucleated RBC 0.000 (0.0-0.012) X10*3/uL Nucleated RBC % (auto) 0.0 (0.0-0.2) /100WBC Sodium 139 (135-145) mmol/L Potassium 3.9 (3.3-5.1) mmol/L Chloride 108 (96-108) mmol/L Carbon Dioxide 27 (22-29) mmol/L Anion Gap 8 L (12-20) BUN 11 (9-16) mg/dL Creatinine 0.74 (0.5-1.4) mg/dL Estim Creat Clear Calc 111.2 Estimated GFR > 60 Random Glucose 84 (60-115) mg/dL Calcium 8.7 (8.4-10.2) mg/dL Magnesium 1.9 (1.6-2.6) mg/dL Total Bilirubin 1.0 (0.0-1.0) mg/dL AST 21 (5-31) U/L ALT 11 (0-31) U/L Alkaline Phosphatase 73 (39-117) U/L Total Protein 6.7 (6.5-8.0) g/dL Albumin 4.0 (3.5-5.0) g/dL Beta HCG, Quant < 2 mIU/mL Discharge Plan Discharge Clinical Impression: Bilateral hand pain, Lumbar paraspinal muscle spasm, Nausea & vomiting, Anemia Patient Disposition: Home, Self-Care Instructions: Iron Rich Diet (ED), Carpal Tunnel Syndrome (DC), Acute Nausea and Vomiting (ED), Paresthesia (ED), Arthralgia (ED) Additional Instructions: You were seen in the emergency department due to bilateral hand pain, numbness and tingling. This is likely attributed to repetitious movements. This is causing inflammation which is compressing on a nerve causing you to have the symptoms. It is very important that you rest, apply ice, and wear wrist splints. Wear the wrist splints at night as this can help with your symptoms. Gentle range of motion and stretching can be beneficial. Taking an anti-inflammatory such as ibuprofen or naproxen can be beneficial for inflammation. Taking naproxen once in the morning and once at bedtime can be beneficial to get ahead of the inflammation. Do not mix ibuprofen with naproxen as these are similar medications and increases your risk of bleeding. If you continue to have pain, you can take Tylenol a 1000 mg every 8 hours. Please follow-up with the youth services specialist. Call to make an appointment. Your blood work was reassuring today. You do have evidence of anemia, please follow-up with your primary care physician. I also encouraged you to take an iron supplement multiple times per week to help. If any new or worsening symptoms occur including but not limited to worsening pain, changes in coloration of your fingers, severe chest pain, shortness of breath, severe abdominal pain, please seek emergent care. Prescriptions: No Action citalopram [Celexa] 10 mg tablet 10 mg PO DAILY clonazepam 0.125 mg tablet,disintegrating 0.125 mg PO DAILY ibuprofen 800 mg tablet 800 mg PO Q8H PRN (Reason: pain) 30 Days Qty: 90 3RF Referrals: [facility] [Provider Group] Stand Alone Forms: Work/School Release Interventions: ED Discharge Assessment Last Done: 08/12/25 13:27 Discharge Date/Time: 08/12/25 13:32 Print Language: Slovenian
[2025-08-12 09:48] VITALS: BP 117/74; PULSE 73; RESP 15; TEMP 36.9; O2SAT 100; BMI 33.8
[2025-08-12 11:19] VITALS: BP 114/66; PULSE 58; RESP 14; TEMP 36.8; O2SAT 98
[2025-08-12 12:06] LABS: MANUAL DIFF FLAG NO
[2025-08-12 12:08] LABS: Hematocrit 32.8 % (37.0-47.0); Hemoglobin 9.7 g/dl (12.0-16.0); Imm Gran Abs Auto 0.02 X10*3/uL (0.00-0.03); Imm Gran Pct Auto 0.4 % (0.0-0.4); Lymphocytes Absolute Auto 0.6 X10*3/uL (1.2-4.9); Mean Corpuscular HGB Conc 29.6 g/dl (31.0-35.0); Mean Corpuscular Hemoglobin 23.0 pg (27.0-33.0); Mean Corpuscular Volume 77.7 fL (80.0-98.0); NRBC Abs Auto 0.000 X10*3/uL (0.0-0.012); NRBC Pct Auto 0.0 /100WBC (0.0-0.2); Platelet Count 198 X10*3/uL (160-400); Red Blood Count 4.22 X10*6/uL (4.20-5.50); White Blood Count 5.3 X10*3/uL (4.8-10.8)
[2025-08-12 12:33] LABS: Alanine Aminotransferase 11 U/L (0-31); Albumin Level 4.0 g/dL (3.5-5.0); Alkaline Phosphatase 73 U/L (39-117); Anion Gap 8 (12-20); Aspartate Amino Transferase 21 U/L (5-31); Blood Urea Nitrogen 11 mg/dL (9-16); Calcium 8.7 mg/dL (8.4-10.2); Carbon Dioxide 27 mmol/L (22-29); Chloride 108 mmol/L (96-108); Creatinine Clr Calc Pharmacy 111.2; Estimated Glomerular Filt Rate > 60; Magnesium 1.9 mg/dL (1.6-2.6); Potassium 3.9 mmol/L (3.3-5.1); Sodium 139 mmol/L (135-145); Total Protein 6.7 g/dL (6.5-8.0)
--- NOTE | 2025-08-12 12:34 | PC.NURSE ---
bilateral wrist splints applied by tech per provider order. pt tolerated well.
[2025-08-12 13:27] VITALS: BP 114/66; PULSE 58; RESP 14; TEMP 36.8; O2SAT 98
== END 2025-08-12 13:32 | disposition home or self-care (01) ==
PROVIDERS: Physician Assistant Medical; Emergency Provider Emergency Medicine
DX: M79.642 Pain in left hand (principal); M79.641 Pain in right hand; M62.830 Muscle spasm of back; R11.2 Nausea with vomiting, unspecified; D64.9 Anemia, unspecified; R19.7 Diarrhea, unspecified
CPT/HCPCS: 36415; 80053; 83735; 84702; 85025; 96372; 99284; 99285; J1885

== ENCOUNTER 2025-09-07 19:05 | Outpatient (REF) | payer OTHER, SELFPAY ==
--- NOTE | ~2025-09-07 | MR_ITS ---
EXAMINATION: MR SHOULDER WITHOUT CONTRAST, LEFT CLINICAL INFORMATION: Unspecified injury . Patient reports injury, pain, numbness. COMPARISON: None available. TECHNIQUE: MRI of the shoulder without contrast was performed on a high-field scanner. FINDINGS: ROTATOR CUFF: Mild supraspinatus and subscapularis tendinosis. No tear is seen. Teres minor, infraspinatus tendons are intact. No muscle atrophy or fatty infiltration. BICEPS: Normal. CORACOACROMIAL ARCH: The undersurface of the acromion is intact with no subacromial spur. Mild acromioclavicular arthritis. No subacromial subdeltoid bursal fluid collection. LABRUM/CAPSULE: No labral tear is seen. No paravertebral cyst. GLENOHUMERAL JOINT/MARROW: No acute fracture. No marrow replacing lesion. No significant glenohumeral joint effusion. Nonspecific subcentimeter axillary lymph nodes. MR/MR shoulder LT wo con IMPRESSION: 1. Mild supraspinatus and subscapularis tendinosis. No rotator cuff tear is seen. 2. Mild acromioclavicular arthritis. Electronically signed by: Colton Kaba MD 09/09/2025 07:51 AM YAKOV
--- OUTSIDE RECORDS SUMMARY | 2025-09-07 19:07 | XMS_ITS | Encounter Summary ---
Author Organization [facility] Address [address] [place] [phone] Phone Care Team Providers Care Food Processing Scientist Name Role Phone JersonNydia ng Primary Care Provider Encounter Details Date Type Department Care Team (Late st Contact Info) Description 01/24/2022 Ancillary Orders [facility]ne[facility] [address] [place] [id number] Elizabeth Alberto, [facility] [address] [facility], [facility] [address] [place] [address] [email or web address] Missed Social History Tobacco Use Types Packs/Day [...] Crowley MD - 01/24/2022 INDICATION: F/U misses VELA, s/p misoprostol Exam Date: 01/24/2022 Last Menstrual [...] Missed documented in this encounter Care Teams Food Processing Scientist Relationship Specialty Start Date End Date Nydia Oro DO [address] [place] [id number] PCP - General Family Medicine 12/14/21 documented as of this encounter Additional Source Comments The information contained in this document represents components of the legal health record. It is not the complete legal health record.[facility]
--- OUTSIDE RECORDS SUMMARY | 2025-09-07 19:07 | XMS_ITS | Encounter Summary ---
Author Organization [employer] Address [address] [place] [address] [address] [place] [address] Care Team Providers Care Cad Cam Programmer Name Role Phone Nydia Oro DO Primary Care Provider Reason for Visit * Reason Onset Date Comments Appointment Request 02/20/2023 Encounter Details Date Type Department Care Team ([facility] st Contact Info) Description 02/20/2023 Telephone [facility] MEDICINE [address] [place] [address] Nydia Oro DO [address] [place] [address] Appointment Request Social History Tobacco Use Types [...] appt with provider. Please contact pt at [phone] documented in this encounter Plan of Treatment Not on file documented as of this encounter Visit Diagnoses Not on filedocumented in this encounter Care Teams Cad Cam Programmer Relationship Specialty Start Date End Date Nydia Oro DO [address] [place] [id number] PCP - General Family Medicine 11/24/20 documented as of this encounter
--- OUTSIDE RECORDS SUMMARY | 2025-09-07 19:07 | XMS_ITS | Encounter Summary ---
Author Organization [employer] Address [address] [facility] [address] [place] [address] Care Team Providers Care Flight Security Specialist Name Role Phone Nydia Oro DO Primary Care Provider Reason for Visit * Reason Onset Date Comments Med Refill 01/29/2024 Encounter Details Date Type Department Care Team (Late st Contact Info) Description 01/29/2024 Refill [facility] MEDICINE [address] [place] [address] Nydia Oro DO [address] [place], [place] [phone] Social History Tobacco Use Types Packs/Day Years [...] documented as of this encounter Care Teams Flight Security Specialist Relationship Specialty Start Date End Date Nydia Oro DO [address] [place] [id number] PCP - General Family Medicine 11/24/20 documented as of this encounter
--- OUTSIDE RECORDS SUMMARY | 2025-09-07 19:07 | XMS_ITS | Clinical Summary ---
Author Organization [employer] Address [address] [facility] 7[address] [place] [address] Care Team Providers Care New Account Interviewer Name Role Phone Nydia Oro Primary Care [...] IN THE MORNING 30 tablet 5 Active Hospital, Clinic, or Other Facility Administered Medication Ordered Dose Route Frequency Start Date End Date Status doxycycline (Adoxa) tablet 100 mgIndications:STI (sexually transmitted infection) 100 mg PO 2 times daily 07/08/2025 Active Active Problems Problem Noted Date Diagnosed [...] Encounters Date Type Department Care Team Description 07/24/2025 Orders Only [facility] [place] [address] Anita Sheppard RN 07/10/2025 Refill [facility] Renny MasonyoDANILO delvalle [address] [place] FNP 07/09/2025 Orders Only [facility] [place] [address] Anita Sheppard, MARTY 07/08/2025 12:30 PM EDT Clinical Support [facility] [address] Sivan Moore RN STI (sexually transmitted infection) (Primary Dx) 07/08/2025 Travel 06/25/2025 Telephone [facility] [place] [address] Brigid Murcia MD Referral 06/23/2025 3:45 PM EDT Office Visit [facility] [place] [address] Brigid Murcia MD Swelling of left palatine tonsil (Primary Dx); Lesion of tonsil 06/23/2025 Travel 06/19/2025 Population Health Risk Score Community [facility] ([facility]) Department [address] [place] [address] [phone] Provider, Population Health Generic 06/18/2025 Telephone [facility] [address] [place] [address] [phone] Nydia Oro DO ER Follow-up 06/12/2025 Orders [...] 2025 12/13/2021, 11/09/2021 Influenza Vaccine (#1) 2025 , 07/20/2021, 09/21/2019, Additional history exists Tobacco Screening [...] to complete this topic HIV Screening Completed 07/02/2025, 03/17, 03/30/2022, Additional history exists Hepatitis C Screening Completed 07/02/2025 , 03/27/2025, 03/30/2022, Additional history exists Meningococcal B Vaccine Aged Out No l onger eligible based on patient's age to complete this topic RSV under 20 months Aged Out No longe r eligible based on patient's age to complete this topic Rotavirus Vaccines Aged Out No longer eligible based on patient's age to complete this topic Procedures Procedure Name Priority Date/Time Associated Diagnosis Comments CHLAMYDIA/GONORRHEA RECTAL SWAB ([facility]) Routine 07/20/2025 CHLAMYDIA/GONORRHEA THROAT SWAB ([facility]) Routine 07/20/2025 CHLAMYDIA/GONORRHEA VAGINAL SWAB ([facility]) Routine 07/20/2025 HIV ANTIBODY/ANTIGEN ([facility]) Routine 07/02/2025 HEPATITIS C ANTIBODY ([facility]) Routine 07/02/2025 SYPHILIS ABS ([facility]) Routine 07/02/2025 CHLAMYDIA/GONORRHEA VAGINAL SWAB ([facility]) Routine 07/02/2025 CHLAMYDIA/GONORRHEA RECTAL SWAB ([facility]) Routine 07/02/2025 CHLAMYDIA/GONORRHEA THROAT SWAB ([facility]) Routine 07/02/2025 COVID-19 ID NOW ([facility]) Routine 06/12/2025 7:07 PM EDT INFLUENZA A B2 ID NOW ([facility]) Routine 06/12/2025 7:07 PM EDT STREP A NUCLEIC ACID Routine 06/12/2025 7:07 PM EDT THINPREP IMAGING SYSTEM PAP Routine 07/20/2021 10:24 AM EDT from Last 3 Months or Most Recently Relevant to Health Maintenance Results * Chlamydia/Gonorrhea Vaginal Swab ([facility]) (07/20/2025) Only the most recent of2 resultswithin the time period is included. Chlamydia Vaginal Swab Negative Negative, Indeterminate, None Detected, Invalid, Specimen unsatisfactory for evaluation, Weakly Positive, 2+ Gonorrhea Vaginal Swab Negative Negative, Indeterminate, None Detected, Invalid, Specimen unsatisfactory for evaluation, Weakly Positive, 2+ Swab Vaginal structure / Unknown 07/20/2025 Result [facility] LAB MICROBIOLOGY - GENERA L ORDERABLES Final Result * Chlamydia/Gonorrhea, Rectal Swab ([facility]) (07/20/2025) Only the most recent of2 resultswithin the time period is included. Chlamydia Rectal Swab Negative Negative, Indeterminate, None Detected, Invalid, Specimen unsatisfactory for evaluation, 2+ Gonorrhea Rectal Swab Negative Negative, Indeterminate, None Detected, Invalid, Specimen unsatisfactory for evaluation, 2+ Swab 07/20/2025 Result [facility] MD LAB MICROBIOLOGY - GENERA L ORDERABLES Final Result * Chlamydia/Gonorrhea Throat Swab ([facility]) (07/20/2025) Only the most recent of2 resultswithin the time period is included. Chlamydia Throat Swab Negative Gonorrhea Throat Swab Negative Swab 07/20/2025 Result [facility] LAB MICROBIOLOGY - GENERA L ORDERABLES Final Result * Syphilis Antibodies ([facility]) (07/02/2025) Syphilis Abs Nonreactive Borderline, Nonreactive, Weakly Reactive, Inconclusive, Specimen unsatisfactory for evaluation Blood Venous blood specimen / Unknown 07/02/2025 Result [facility] Provider MD LAB BLOOD ORDERABLES Monika l Result * Hepatitis C Antibody ([facility]) (07/02/2025) Hepatitis C Ab Nonreactive Blood 07/02/2025 Result [facility] MD LAB BLOOD ORDERABLES Monika l Result * HIV Ab/Ag ([facility]) (07/02/2025) HIV Ag/Ab Nonreactive Blood 07/02/2025 Historical Provider MD LAB BLOOD ORDERABLES Monika l Result * Influenza A B2 ID NOW ([facility]) (06/12/2025 7:07 PM EDT) IDNOW SERIAL# [id number] [facility] Influenza A Negative Negative [facility] Influenza B2 Negative Negative [facility] Influenza A B2 Note See Note [facility] Comment:The Pedro[facility] ID NOW In fluenza [...] LAB MICROBIOLOGY - GENERAL ORDERABLES Final Result [facility] [address] [place] [phone] * Strep A Nucleic Acid (06/12/2025 7:07 PM EDT) IDNOW SERIAL# [id number] [facility] Strep A Nucleic Acid Negative Negative [facility] Comment:All test results mus t be correlated with clinical findings.This test has not been evaluated for monitoring treatment ofinfection.Additional follow-up testing using the culture method isrequired if the result is negative and clinical symptomspersist, or in the event of an acute rheumatic feveroutbreak. 06/12/2025 7:07 PM EDT 06/12/2025 7:18 PM EDT us Generic External Data Provider LAB MICROBIOLOGY - GENERAL ORDERABLES Final Result Performing Organization Address [facility] Co de Phone Number [facility] [address] [place] [phone] * COVID-19 ID NOW ([facility]) (06/12/2025 7:07 PM EDT) IDNOW SERIAL# [id number] [facility] COVID-19 TEST Negative Negative [facility] COVID-19 NOTE See Note [facility] Comment: Results are for the identification of SARS-CoV2 RNA. TheSARS-CoV2 RNA is generally detectable in respiratory samplesduring the acute phase of infection. Positive results areindicative of the presence of SARS-CoV-2 RNA; clinicalcorrelation with patient history and other diagnosticinformation is necessary to determine patient infectionstatus. Positive results do not rule out bacterial infectionor co- infection with other viruses.Testing facilities within the [facility] and [facility] are required to report all positive results [...] use by authorized laboratories.Testing performed on the [facility] ID NOW utilizing NAAT. 06/12/2025 7:07 PM EDT 06/12/2025 7:18 PM EDT us Generic External Data Provider LAB MOLECULAR YOSHI GNOSTICS ORDERABLES Final Result Performing Organization Address City/[facility]/ZIP Co de Phone Number [facility] [address] [place] [address] [phone] * THINPREP TIS PAP (07/20/2021 10:24 AM [...] along with historic and current clinical information. Comment: This Pap test has been evaluated with computer assisted technology. [facility] Vinyl Flooring Installer : SEE COMMENT [facility] Comment: RK CT(ASCP) CT screening location: [place] [address] Infection Shift in vaginal kandice suggestive of bacterial vaginosis. [facility] Interpretation/R esult: Negative for intraepithelial lesion or malignancy. [facility] LMP: 07/12/2021 [facility] Prev. BX: NONE GIVEN [facility] Prev. PAP: NONE GIVEN [facility] SOURCE: None given [facility] Statement Of Adequacy: SEE COMMENT [facility] Comment: Satisfactory for evaluation. Endocervical/transformation zone component present. 07/20/2021 10:2 4 AM EDT Malou Baker CNM LAB PATHOLOGY ORDERABLES Final Result [facility] [address] from Last 3 Months or Most Recently Relevant to Health Maintenance Insurance HSN PARTIAL Care Teams New Account Interviewer Relationship Specialty Start Date End Date Nydia Oro DO [address] [place] [phone] PCP - General Family Medicine 11/24/20
--- OUTSIDE RECORDS SUMMARY | 2025-09-07 19:08 | XMS_ITS | Encounter Summary ---
Author Organization [facility] Address [address] [place] [address] [place] [phone] Phone Care Team Providers Care Cartography/Mapping Technician Name Role Phone Nydia Oro DO Primary Care Provider Encounter Details Date Type Department Care Team (Late st Contact Info) Description 05/05/2025 Procedure Pass OR Admitting Dept - Virtual Department [address] [place] [phone] Social History Tobacco Use Types Packs/Day Years [...] on filedocumented in this encounter Care Teams Cartography/Mapping Technician Relationship Specialty Start Date End Date Nydia Oro DO [address] [place] [address] PCP - General Family Medicine 12/14/21 documented as of this encounter Additional Source Comments The information contained in this document represents components of the legal health record. It is not the complete legal health record.[facility]
--- OUTSIDE RECORDS SUMMARY | 2025-09-07 19:08 | XMS_ITS | Clinical Summary ---
Author Organization [facility] Address [address] [phone] Phone Care Team Providers Care Machine Try Out Setter Name Role Phone NoahNydia albarran Primary Care Provider [phone] Allergies No known active allergies Medications citalopram [...] 50 mg by mouth daily. Active PNV no.[id number] ic acid ( VITAMIN) 28 mg iron- [...] there was no FHR. Report received from [facility] and on 04/24/25 with FHTs of 109. Dx with MAB today Assessment & Plan (05/01/2025 3:33 PM EDT): Candy is a 25 yo @ 9+1 wks by LMP, here today with MAB dx by US. Report from [facility] showed IUP with +fhts on 04/24/25. This [...] not discussed today. Case Request sent to compliance reviewer. Assessment & Plan (01/09/2022 12:55 PM EDT): [...] a 20-min visit with >50 % in [id number] counseling and care coordination. Elizabeth Alberto CNM [...] strong odors. Sucking on a lemon or [place] slice may help. Don't worry about adhering to a balanced diet unless you are diabetic; just eat whatever appeals to you until the nausea goes away. [place] foods often make nausea worse. Acupressure wristbands [...] structure -intake packet sent via pt portal Immunizations Immunization Administration Dates Next Due DTP [...] 09/21/2019, Additional history exists COVID-19 VACCINE ( season) 2025 12/13/2021, 11/09/2021 RSV VACCINE (1 [...] complete this topic HEPATITIS C SCREENING Completed 05/05/2025, 025 HIV ONE-TIME SCREENING (18-65 YEARS) Completed 05/05/2025 MENINGOCOCCAL VACCINES (B) Aged Out N o longer eligible based on patient's age to complete this topic Medical Devices Not on file Procedures Procedure Name Priority Date/Time Associated Diagnosis Comments HEPATITIS C ANTIBODY, QUALITATIVE STAT 05/05/2025 11:22 AM EDT from Last 3 Months or Most Recently Relevant to Health Maintenance Results * Hepatitis C antibody, qualitative (05/05/2025 11:22 AM EDT) HCV NON-REACTIV E NON-REACTI VE [facility] Blood 05/05/2025 11:2 2 AM EDT 05/05/2025 11:30 AM EDT us Radha Cifuentes MD LAB BLOOD BKR ORDERABLES F inal Result [facility] [address] [place] [address] from Last 3 Months or Most Recently Relevant to Health Maintenance Insurance [facility] C3 ACO C3 ACO C3 ACO C3 ACO C3 ACO C3 ACO C3 ACO [facility] [place] [place] [id number] [facility] C3 ACO Care Teams Machine Try Out Setter Relationship Specialty Start Date End Date Nydia Oro DO [address] [place] [phone] PCP - General Family Medicine 12/14/21 Additional Source Comments The information contained in this document represents components of the legal health record. It is not the complete legal health record.[facility]
--- OUTSIDE RECORDS SUMMARY | 2025-09-07 19:08 | XMS_ITS | Encounter Summary ---
Author Organization [facility] Address [address] [place] [phone] Phone Care Team Providers Care Networking Technology Instructor Name Role Phone Nydia Oro DO Primary Care Provider Encounter Details Date Type Department Care Team (Late st Contact Info) Description 01/27/2022 Procedure Pass OR Admitting Dept - Virtual Department [address] [place] [phone] Social History Tobacco Use Types Packs/Day Years [...] on filedocumented in this encounter Care Teams Networking Technology Instructor Relationship Specialty Start Date End Date Nydia Oro DO [address] [place] [phone] PCP - General Family Medicine 12/14/21 documented as of this encounter Additional Source Comments The information contained in this document represents components of the legal health record. It is not the complete legal health record.[facility]
== END 2025-09-07 19:06 | disposition home or self-care (01) ==
LOC: HO.MRI 19:05
PROVIDERS: Visit Provider Physician Assistant
DX: S46.009A Unspecified injury of muscle(s) and tendon(s) of the rotator cuff of unspecified shoulder, initial encounter (principal)
CPT/HCPCS: 73221

== ENCOUNTER → 2025-09-07 19:12 | Outpatient (BNV) | payer OTHER, SELFPAY | PROVIDERS: Visit Provider Radiology Diagnostic Ultrasound | DX: S49.92XA Unspecified injury of left shoulder and upper arm, initial encounter (principal); M75.32 Calcific tendinitis of left shoulder; M19.012 Primary osteoarthritis, left shoulder | CPT/HCPCS: 73221 ==